=== PATIENT | male | born 1945 | race Caucasian/White ===

== ENCOUNTER 2016-09-29 21:18 | Observation (INO) | payer MEDICARE, OTHER ==
[2016-09-29] MEDS ORDERED: Sodium Chloride 0.9% 1000 ML 1,000 ML IV STA (21:54)
[2016-09-29] MEDS ORDERED: PROTONIX 40 MG IV IV ONE ×2 (21:54→22:15)
[2016-09-29 22:12] LABS: BASOPHIL % 0.4 % (0.0-0.4); Eosinophil % 0.9 % (0.00-5.0); Granulocytes % 76.6 % (36.0-66.0); INR 1.14 (0.8-3.0); Lymphocytes % 14.5 % (24.0-44.0); Mean Cell Volume 78.3 fl (78-100); Mean Platelet Volume 10.9 fl (6-9.5); Monocytes % 7.6 % (0.0-12.0); PROTIME 12.7 SECONDS (8.83-12.87); Platelet Count 320 K/mm3 (150-450); Red Cell Distribution Width 15.5 % (11.5-14.0)
[2016-09-29 22:13] LABS: Mean Corpuscular Hemoglobin 24.2 pg (26-32)
[2016-09-29] MEDS ORDERED: Sodium Chloride 0.9% 1000 ML 1,000 ML ONE (22:15)
[2016-09-29] MEDS ORDERED: Phenergan 25 MG INJ IV ONE (22:18)
[2016-09-29] MEDS ORDERED: Hydromorphone 1 mg/ml Ampule IV ONE (22:18)
--- NOTE | 2016-09-29 22:18 | ERPHSYRPT ---
- History of Present Illness Time Seen by Provider: 09/29/16 22:00 Historian: patient Exam Limitations: no limitations Physician History: FOR THE PAST MONTH PT HAS HAD 3-10 EPISODES OF DIARRHEA PER DAY WITH BRIGHT RED BLOOD IN THE STOOL FOR THE LAST 2 DAYS. PT ALSO C/O NAUSEA TODAY. PT DENIES VOMITING, CHEST PAIN AND SHORTNESS OF AIR. Allergies/Adverse Reactions: No Known Drug Allergies Allergy (Unverified 09/29/16 22:02) Home Medications: Aspirin 81 gm Chew [Baby Aspirin 81 mg Chew] 81 mg PO DAILY 06/10/16 [ History] Atenolol 50 mg [Tenormin 50 mg] 50 mg PO DAILY 06/10/16 [History] Fenofibrate,Micronized 145 mg* [Tricor 145 MG] 145 mg PO DAILY 06/10/16 [ History] Meloxicam 7.5 mg [Mobic 7.5 MG] 7.5 mg PO BID 06/10/16 [History] Omeprazole 40 mg PO DAILY 06/10/16 [History] Tamsulosin HCl 0.4 mg [Flomax 0.4 MG] 0.4 mg PO DAILY 06/10/16 [History] Tramadol HCl [Tramadol HCl ER] 100 mg PO DAILY 06/10/16 [History] - Review of Systems Constitutional: No Fever Respiratory: No Dyspnea Cardiac: No Chest Pain Abdominal/Gastrointestinal: Nausea, Diarrhea, Hematochezia All Other Systems: Reviewed and Negative - Nursing Vital Signs Nursing Vital Signs: Initial Vital Signs Temperature 98 F Temperature Source Oral Pulse Rate 68 Respiratory Rate 16 Blood Pressure [] 111/78 Pain Intensity 0 - Physical Exam General Appearance: alert Eye Exam: PERRL/EOMI Ears, Nose, Throat Exam: TMs normal, moist mucous membranes Neck Exam: normal inspection Respiratory Exam: lungs clear Cardiovascular Exam: normal heart sounds Gastrointestinal/Abdomen Exam: soft, tenderness (MILD DIFFUSE ABDOMINAL TENDERNESS), other (B.S. VERY HYPERACTIVE AND NORMOTONIC) Rectal Exam: normal rectal tone, hemorrhoids (EXTERNAL HEMORRHOID), blood Back Exam: normal range of motion Extremity Exam: normal inspection, No pedal edema Neurologic Exam: alert, cooperative Skin Exam: warm, dry - Course Nursing assessment & vital signs reviewed: Yes - CT Exams Abdomen/Pelvis CT Interpretation: Tele-radiologist Report (COLONIC DIVERTICULOSIS. THERE IS BOWEL WALL THICKENING INVOLVING THE SIGMOID COLON WHICH MAY BE DUE TO INCOMPLETE DISTENTION OR COLITIS/DIVERTICULITIS.) Ordered Tests: Active Orders 24 hr Category Date Time Status IV Insertion STAT Care 09/29/16 21:54 Active ABDOMEN AND PELVIS W/0 CONTRAS [CT] Stat Exams 09/29/16 21:55 Taken AMYLASE Stat Lab 09/29/16 21:41 Completed BLOOD CULTURE Stat Lab 09/29/16 21:55 Received CBC W DIFF Stat Lab 09/29/16 21:41 Completed CMP Stat Lab 09/29/16 21:41 Completed LIPASE Stat Lab 09/29/16 21:41 Completed Occult Blood,Stool Other Stat Lab 09/29/16 21:55 Uncollected PROTIME WITH INR Stat Lab 09/29/16 21:41 Completed PTT Stat Lab 09/29/16 21:41 Completed UA Stat Lab 09/29/16 21:55 Ordered Medication Summary Generic Name Dose Route Start Last Admin Trade Name Freq PRN Reason Stop Dose Admin Levofloxacin/Dextrose 100 mls @ 100 mls/hr 09/29/16 23:23 09/29/16 23:32 Levofloxacin 500mg/100ml D5w IV 09/30/16 00:22 100 mls/hr STAT ONE Administration Metronidazole 100 mls @ 100 mls/hr 09/29/16 23:23 09/29/16 23:32 Flagyl 500 Mg Ivpb IV 09/30/16 00:22 100 mls/hr STAT ONE Administration Discontinued Medications Generic Name Dose Route Start Last Admin Trade Name Freq PRN Reason Stop Dose Admin Hydromorphone HCl 1 mg 09/29/16 22:18 09/29/16 22:23 Hydromorphone 1 Mg/Ml Ampule IV 09/29/16 22:19 1 mg STAT ONE Administration Hydromorphone HCl Confirm 09/29/16 22:23 Hydromorphone 1 Mg/Ml Ampule Administered 09/29/16 22:24 Dose 1 mg .ROUTE .STK-MED ONE Sodium Chloride 1,000 mls @ 999 mls/hr 09/29/16 21:54 09/29/16 22:17 Sodium Chloride 0.9% 1000 Ml IV 09/29/16 22:54 999 mls/hr .Q1H1M STA Administration Sodium Chloride Confirm 09/29/16 22:15 Sodium Chloride 0.9% 1000 Ml Administered 09/29/16 22:16 Dose 1,000 mls @ ud .ROUTE .STK-MED ONE Metronidazole Confirm 09/29/16 23:31 Flagyl 500 Mg Ivpb Administered 09/29/16 23:32 Dose 100 mls @ ud IV .STK-MED ONE Levofloxacin/Dextrose Confirm 09/29/16 23:31 Levofloxacin 500mg/100ml D5w Administered 09/29/16 23:32 Dose 100 mls @ ud IV .STK-MED ONE Pantoprazole Sodium 40 mg 09/29/16 21:54 09/29/16 22:17 Protonix 40 Mg Iv IV 09/29/16 21:55 40 mg STAT ONE Administration Pantoprazole Sodium Confirm 09/29/16 22:15 Protonix 40 Mg Iv Administered 09/29/16 22:16 Dose 40 mg IV .STK-MED ONE Promethazine HCl 12.5 mg 09/29/16 22:18 09/29/16 22:24 Phenergan 25 Mg Inj IV 09/29/16 22:19 12.5 mg STAT ONE Administration Promethazine HCl Confirm 09/29/16 22:23 Phenergan 25 Mg Inj Administered 09/29/16 22:24 Dose 25 mg .ROUTE .STK-MED ONE Lab/Rad Data: Laboratory Result Diagrams 09/29/16 21:41 09/29/16 21:41 Laboratory Results 09/29/16 09/29/16 09/29/16 Range/Units 21:41 21:41 21:41 WBC (4.0-10.5) K/mm3 RBC (4.1-5.6) M/mm3 Hgb (12.5-18.0) gm/dl Hct (42-50) % MCV (78-100) fl MCH (26-32) pg MCHC (32-36) g/dl RDW (11.5-14.0) % Plt Count (150-450) K/mm3 MPV (6-9.5) fl Gran % (36.0-66.0) % Lymphocytes % (24.0-44.0) % Monocytes % (0.0-12.0) % Eosinophils % (0.00-5.0) % Basophils % (0.0-0.4) % Basophils # (0-0.4) INR 1.14 (0.8-3.0) PTT 31.0 (24.1-36.1) SECONDS Sodium 139 (136-145) mEq/L Potassium 4.4 (3.5-5.1) mEq/L Chloride 105 (98-107) mEq/L Carbon Dioxide 25.5 (21-32) mEq/L Anion Gap 12.8 (5-15) MEQ/L BUN 30 H (9-20) mg/dL Creatinine 1.34 H (0.55-1.30) mg/dl Estimated GFR 56 ML/MIN Glucose 119 H (70-110) MG/DL Calcium 8.6 (8.5-10.1) mg/dL Total Bilirubin 0.3 (0.2-1.0) mg/dL AST 23 (15-37) U/L ALT 16 (12-78) U/L Alkaline Phosphatase 75 (46-116) U/L Serum Total Protein 6.8 (6.4-8.2) gm/dL Albumin 3.5 (3.4-5.0) g/dL Amylase 50 (25-115) U/L Lipase 80 (73-393) U/L ABO Group O Rh Factor POSITIVE Antibody Screen NEGATIVE (NEGATIVE) 09/29/16 Range/Units 21:41 WBC 17.0 H (4.0-10.5) K/mm3 RBC 4.20 (4.1-5.6) M/mm3 Hgb 10.2 L (12.5-18.0) gm/dl Hct 32.9 L (42-50) % MCV 78.3 (78-100) fl MCH 24.2 L (26-32) pg MCHC 31.0 L (32-36) g/dl RDW 15.5 H (11.5-14.0) % Plt Count 320 (150-450) K/mm3 MPV 10.9 H (6-9.5) fl Gran % 76.6 H (36.0-66.0) % Lymphocytes % 14.5 L (24.0-44.0) % Monocytes % 7.6 (0.0-12.0) % Eosinophils % 0.9 (0.00-5.0) % Basophils % 0.4 (0.0-0.4) % Basophils # 0.06 (0-0.4) INR (0.8-3.0) PTT (24.1-36.1) SECONDS Sodium (136-145) mEq/L Potassium (3.5-5.1) mEq/L Chloride (98-107) mEq/L Carbon Dioxide (21-32) mEq/L Anion Gap (5-15) MEQ/L BUN (9-20) mg/dL Creatinine (0.55-1.30) mg/dl Estimated GFR ML/MIN Glucose (70-110) MG/DL Calcium (8.5-10.1) mg/dL Total Bilirubin (0.2-1.0) mg/dL AST (15-37) U/L ALT (12-78) U/L Alkaline Phosphatase (46-116) U/L Serum Total Protein (6.4-8.2) gm/dL Albumin (3.4-5.0) g/dL Amylase (25-115) U/L Lipase (73-393) U/L ABO Group Rh Factor Antibody Screen (NEGATIVE) - Progress Discussed with : Khushboo (ABD - [id number]) - Departure Time of Disposition: 23:49 Departure Disposition: Observation Clinical Impression: DIVERTICULITIS, HEMATOCHEZIA, ANEMIA, HTN Condition: Fair Critical Care Time: No Referrals: SULTANA TAN MD [Primary Care Provider] -
[2016-09-29 22:20] LABS: ALBUMIN 3.5 g/dL (3.4-5.0); ANION GAP 12.8 MEQ/L (5-15); BILIRUBIN,TOTAL 0.3 mg/dL (0.2-1.0); Carbon Dioxide 25.5 mEq/L (21-32); Potassium 4.4 mEq/L (3.5-5.1); Total Protein 6.8 gm/dL (6.4-8.2)
[2016-09-29] MEDS ORDERED: Phenergan 25 MG INJ ONE (22:23)
[2016-09-29] MEDS ORDERED: Hydromorphone 1 mg/ml Ampule ONE (22:23)
[2016-09-29] MEDS ORDERED: FLAGYL 500 MG IVPB 100 ML IV ONE ×2 (23:23→23:31)
[2016-09-29] MEDS ORDERED: Levofloxacin 500MG/100ML D5W 100 ML IV ONE ×2 (23:23→23:31)
[2016-09-30] MEDS ORDERED: TYLENOL 325 MG PO PRN (00:23)
[2016-09-30] MEDS: Phenergan 25 MG INJ IV PRN (00:56)
[2016-09-30] MEDS: DILAUDID 2 MG INJECTION IV PRN (00:56)
[2016-09-30] MEDS: Sodium Chloride 0.9% 1000 ML 1,000 ML IV SCH ×3 (00:57→17:34)
[2016-09-30 04:04] LABS: COMPLETE URINE MICROSCOPIC? YES; Collection Type CLEAN CATCH; Ph 5.5 (5-6); WBC 0-2 /HPF (0-5)
[2016-09-30 04:05] LABS: Epithelial Cells RARE /HPF (FEW)
[2016-09-30] MEDS: FLAGYL 500 MG IVPB 100 ML IV SCH ×3 (05:28→21:24)
[2016-09-30 05:52] LABS: BASOPHIL % 0.2 % (0.0-0.4); Eosinophil % 2.1 % (0.00-5.0); Granulocytes % 72.5 % (36.0-66.0); Mean Cell Volume 79.5 fl (78-100); Mean Platelet Volume 10.9 fl (6-9.5); Monocytes % 8.2 % (0.0-12.0); Platelet Count 231 K/mm3 (150-450); Red Blood Count 3.37 M/mm3 (4.1-5.6); Red Cell Distribution Width 15.6 % (11.5-14.0); White Blood Count 9.6 K/mm3 (4.0-10.5)
[2016-09-30 06:18] LABS: ALBUMIN 2.7 g/dL (3.4-5.0); ALKALINE PHOSPHATASE 56 U/L (46-116); ANION GAP 11.8 MEQ/L (5-15); BILIRUBIN,TOTAL 0.3 mg/dL (0.2-1.0); BLOOD UREA NITROGEN 30 mg/dL (9-20); CHLORIDE 109 mEq/L (98-107); Carbon Dioxide 24.3 mEq/L (21-32); Glucose 92 MG/DL (70-110); Potassium 4.5 mEq/L (3.5-5.1); SGOT/AST 17 U/L (15-37); SGPT/ALT 11 U/L (12-78); SODIUM 141 mEq/L (136-145); Total Protein 5.4 gm/dL (6.4-8.2)
--- NOTE | 2016-09-30 08:54 | PCM.HP ---
History of Present Illness - Chief Complaint Chief Complaint: c/o bleeding per rectum for 3 days History of Present Illness: is a 70 year old male.came to ER with c/o of bloody stools for 3 days. denies any fever - Review of Systems Constitutional: No Fever, No Chills Eyes: No Symptoms Ears, Nose, & Throat: No Symptoms Respiratory: No Cough, No Short Of Breath Cardiac: No Chest Pain, No Edema, No Syncope Abdominal/Gastrointestinal: No Abdominal Pain, No Nausea, No Vomiting, No Diarrhea Genitourinary Symptoms: No Dysuria Musculoskeletal: No Back Pain, No Neck Pain Skin: No Rash Neurological: No Dizziness, No Focal Weakness, No Sensory Changes Psychological: No Symptoms Endocrine: No Symptoms Hematologic/Lymphatic: No Symptoms Immunological/Allergic: No Symptoms Medications & Allergies Home Medications: Home Medication List Aspirin 81 gm Chew [Baby Aspirin 81 mg Chew] 81 mg PO DAILY 06/10/16 [ History Confirmed 09/30/16] Atenolol 50 mg [Tenormin 50 mg] 50 mg PO DAILY 06/10/16 [History Confirmed 09/30/16] Fenofibrate,Micronized 145 mg* [Tricor 145 MG] 145 mg PO DAILY 06/10/16 [ History Confirmed 09/30/16] Meloxicam 7.5 mg [Mobic 7.5 MG] 7.5 mg PO BID 06/10/16 [History Confirmed 09/30/16] Omeprazole 40 mg PO DAILY 06/10/16 [History Confirmed 09/30/16] Tamsulosin HCl 0.4 mg [Flomax 0.4 MG] 0.4 mg PO DAILY 06/10/16 [History Confirmed 09/30/16] Tramadol HCl [Tramadol HCl ER] 100 mg PO DAILY 06/10/16 [History Confirmed 09/30] Allergies/Adverse Reactions: Allergies Allergy/AdvReac Type Severity Reaction Status Date / Time No Known Drug Allergies Allergy Unverified 09/29/16 22:02 - Past Medical History Cardiac History: Hypertension Male Reproductive Disorders: Other Comment: elevated psa with biopsy 4 months ago. hx of kidney stones and cyst on right kidney - Past Surgical History Past Surgical History: Yes Musculskeletal Surgical Hx: Joint Replacement, Other Other Surgical History: right hip replacement bilat carpal tunnel - Social History Smoking Status: Former smoker Exposure to second hand smoke: No Alcohol: None Drug Use: none - Physical Exam Vital Signs: Vital Signs - 24 hr Temp Pulse Resp BP BP Pulse Ox 09/30/16 07:55 122/56 09/30/16 07:54 97.6 F 54 L 17 93/51 98 09/30/16 04:00 97.9 F 52 L 14 112/51 97 09/30/16 01:06 98.3 F 55 L 18 160/65 100 General Appearance: no apparent distress, alert Neurologic Exam: alert, oriented x 3, cooperative, normal mood/affect, nml cerebellar function, nml station & gait, sensation nml, No motor deficits Eye Exam: PERRL/EOMI, eyes nml inspection Ears, Nose, Throat Exam: normal ENT inspection, TMs normal, pharynx normal, moist mucous membranes Neck Exam: normal inspection, non-tender, supple, full range of motion Respiratory Exam: normal breath sounds, lungs clear, No respiratory distress Cardiovascular Exam: regular rate/rhythm, normal heart sounds, normal peripheral pulses Gastrointestinal/Abdomen Exam: soft, normal bowel sounds, No tenderness, No mass Back Exam: normal inspection, normal range of motion, No CVA tenderness, No vertebral tenderness Extremity Exam: normal inspection, normal range of motion, pelvis stable Skin Exam: normal color, warm, dry, No rash Lymphatic Exam: No adenopathy Results - Labs Lab/Micro Results: Lab Results-Last 24 Hours 09/30/16 09/30/16 09/30/16 Range/Units 03:45 05:28 05:28 WBC 9.6 (4.0-10.5) K/mm3 RBC 3.37 L (4.1-5.6) M/mm3 Hgb 8.1 L (12.5-18.0) gm/dl Hct 26.8 L (42-50) % MCV 79.5 (78-100) fl MCH 24.0 L (26-32) pg MCHC 30.2 L (32-36) g/dl RDW 15.6 H (11.5-14.0) % Plt Count 231 (150-450) K/mm3 MPV 10.9 H (6-9.5) fl Gran % 72.5 H (36.0-66.0) % Lymphocytes % 17.0 L (24.0-44.0) % Monocytes % 8.2 (0.0-12.0) % Eosinophils % 2.1 (0.00-5.0) % Basophils % 0.2 (0.0-0.4) % Basophils # 0.02 (0-0.4) Sodium 141 (136-145) mEq/L Potassium 4.5 (3.5-5.1) mEq/L Chloride 109 H (98-107) mEq/L Carbon Dioxide 24.3 (21-32) mEq/L Anion Gap 11.8 (5-15) MEQ/L BUN 30 H (9-20) mg/dL Creatinine 1.09 (0.55-1.30) mg/dl Estimated GFR > 60 ML/MIN Glucose 92 (70-110) MG/DL Calcium 8.1 L (8.5-10.1) mg/dL Total Bilirubin 0.3 (0.2-1.0) mg/dL AST 17 (15-37) U/L ALT 11 L (12-78) U/L Alkaline Phosphatase 56 (46-116) U/L Serum Total Protein 5.4 L (6.4-8.2) gm/dL Albumin 2.7 L (3.4-5.0) g/dL Ur Collection Type CLEAN CATCH Urine Color YELLOW (YELLOW) Urine Appearance CLEAR (CLEAR) Urine pH 5.5 (5-6) Ur Specific Hobbs 1.020 (1.005-1.025) Urine Protein NEGATIVE (Negative) Urine Glucose (UA) NEGATIVE (NEGATIVE) mg/dL Urine Ketones NEGATIVE (NEGATIVE) Urine Nitrite NEGATIVE (NEGATIVE) Urine Bilirubin NEGATIVE (NEGATIVE) Urine Urobilinogen 0.2 (0-1) mg/dL Urine WBC (Auto) TRACE (NEGATIVE) Urine RBC (Auto) NEGATIVE (0-5) Manny/ul Urine Microscopic WBC 0-2 (0-5) /HPF Ur Epithelial Cells RARE (FEW) /HPF Specimen Received 09/30/16:0345 Crossmatch (COMPATIBLE) 09/30/16 09/30/16 Range/Units 05:30 05:30 WBC (4.0-10.5) K/mm3 RBC (4.1-5.6) M/mm3 Hgb (12.5-18.0) gm/dl Hct (42-50) % MCV (78-100) fl MCH (26-32) pg MCHC (32-36) g/dl RDW (11.5-14.0) % Plt Count (150-450) K/mm3 MPV (6-9.5) fl Gran % (36.0-66.0) % Lymphocytes % (24.0-44.0) % Monocytes % (0.0-12.0) % Eosinophils % (0.00-5.0) % Basophils % (0.0-0.4) % Basophils # (0-0.4) Sodium (136-145) mEq/L Potassium (3.5-5.1) mEq/L Chloride (98-107) mEq/L Carbon Dioxide (21-32) mEq/L Anion Gap (5-15) MEQ/L BUN (9-20) mg/dL Creatinine (0.55-1.30) mg/dl Estimated GFR ML/MIN Glucose (70-110) MG/DL Calcium (8.5-10.1) mg/dL Total Bilirubin (0.2-1.0) mg/dL AST (15-37) U/L ALT (12-78) U/L Alkaline Phosphatase (46-116) U/L Serum Total Protein (6.4-8.2) gm/dL Albumin (3.4-5.0) g/dL Ur Collection Type Urine Color (YELLOW) Urine Appearance (CLEAR) Urine pH (5-6) Ur Specific Hobbs (1.005-1.025) Urine Protein (Negative) Urine Glucose (UA) (NEGATIVE) mg/dL Urine Ketones (NEGATIVE) Urine Nitrite (NEGATIVE) Urine Bilirubin (NEGATIVE) Urine Urobilinogen (0-1) mg/dL Urine WBC (Auto) (NEGATIVE) Urine RBC (Auto) (0-5) Manny/ul Urine Microscopic WBC (0-5) /HPF Ur Epithelial Cells (FEW) /HPF Specimen Received Crossmatch COMPATIBLE COMPATIBLE (COMPATIBLE) Assessment/Plan (1) Diverticulitis large intestine w/o perforation or abscess w/bleeding Current Visit: Yes Status: Acute Assessment & Plan: NPO, IV fluids, antibiotics, surgical consults Code(s): K57.33 - DVTRCLI OF LG INT W/O PERFORATION OR ABSCESS W BLEEDING
[2016-09-30 08:57] LABS: Mean Cell Volume 79.6 fl (78-100); Mean Platelet Volume 9.7 fl (6-9.5); Platelet Count 244 K/mm3 (150-450); Red Blood Count 3.43 M/mm3 (4.1-5.6); Red Cell Distribution Width 15.6 % (11.5-14.0)
[2016-09-30 08:59] LABS: Mean Corpuscular Hemoglobin 24.4 pg (26-32)
--- NOTE | 2016-09-30 09:08 | XRAY ---
Indication: Diarrhea. Rectal bleeding. Lower pelvic pain. Multiple contiguous axial images obtained through the abdomen and pelvis without contrast as ordered. Comparison: CT renal stone study March 25, 2013. Lung bases demonstrates minimal lingular fibrosis/scarring. No infiltrate, consolidation, or effusion. Heart is not enlarged. Stomach is significantly distended with food/fluid. Noncontrasted bowel loops appear nonobstructed. Mild colonic fluid leveling consistent with known diarrhea. Minimal sigmoid diverticulosis. Appendix not seen. No free fluid/air. Again nonobstructing bilateral renal micro-calculi. Stable bilateral renal cysts including large 10 cm right renal cyst. Remaining liver, gallbladder, pancreas, spleen, adrenal glands, ureters, and bladder appear unremarkable for noncontrast exam. There remains mild aortoiliac calcifications without AAA. Osseous structures intact again with mild degenerative changes throughout the spine. Interval right total hip arthroplasty. Stable small fatty left inguinal hernia. Impression: 1. Mild colonic fluid leveling consistent with known diarrhea. Sigmoid diverticulosis. 2. Again nonobstructing bilateral renal micro-calculi and bilateral renal cysts. 3. Stable fatty left inguinal hernia. Comment: Preliminary interpretation was made by C. No critical discrepancy. CTDI 18.64
[2016-09-30] MEDS: PROTONIX 40 MG IV IV SCH (09:28)
[2016-09-30] MEDS ORDERED: DULCOLAX 5 MG PO SCH ×2 (15:00→19:00)
[2016-09-30] MEDS ORDERED: GAVILAX PO SCH (17:15)
[2016-09-30] MEDS ORDERED: Flonase NASAL NS ONE (18:28)
[2016-09-30] MEDS: Flonase NASAL NS PRN (18:29)
[2016-09-30] MEDS ORDERED: Levofloxacin 500MG/100ML D5W 100 ML IV SCH (22:00)
[2016-10-01] MEDS: Sodium Chloride 0.9% 1000 ML 1,000 ML IV SCH (01:44)
[2016-10-01] MEDS: Phenergan 25 MG INJ IV PRN ×2 (05:36→09:05)
[2016-10-01] MEDS: FLAGYL 500 MG IVPB 100 ML IV SCH (05:37)
[2016-10-01] MEDS: Flonase NASAL NS PRN (05:42)
[2016-10-01 06:21] LABS: Mean Cell Volume 78.3 fl (78-100); Mean Corpuscular Hemoglobin 24.3 pg (26-32); Mean Platelet Volume 10.6 fl (6-9.5); Platelet Count 214 K/mm3 (150-450); Red Blood Count 3.41 M/mm3 (4.1-5.6); Red Cell Distribution Width 15.8 % (11.5-14.0); White Blood Count 5.2 K/mm3 (4.0-10.5)
[2016-10-01] MEDS ORDERED: Lactated Ringers 1,000 ML IV ONE (06:58)
[2016-10-01] MEDS ORDERED: ANUSOL-HC 2.5% CREAM 30 GM ONE (06:59)
[2016-10-01] MEDS ORDERED: KEFZOL 1 GM ONE (07:31)
[2016-10-01] MEDS ORDERED: DIPRIVAN 200 MG/20 ML IV ONE (08:00)
[2016-10-01] MEDS: DILAUDID 2 MG INJECTION IV PRN (09:03)
[2016-10-01] MEDS: PROTONIX 40 MG IV IV SCH (09:14)
[2016-10-01] MEDS ORDERED: Flomax 0.4 MG PO SCH (10:00)
[2016-10-01] MEDS ORDERED: TENORMIN 50 MG PO SCH (10:00)
[2016-10-01] MEDS ORDERED: ULTRAM 50 MG PO SCH (10:00)
[2016-10-01] MEDS ORDERED: Tricor 145 MG PO SCH (10:00)
--- NOTE | 2016-10-01 10:53 | PCM.DS ---
Discharge Summary Date of Admission: 09/29/16 23:32 Admitting Physician: SULTANA TAN Consults: Consults on Case 09/30/16 09:05 Consult Surgery ROUTINE Primary Care Provider: SULTANA TAN Allergies Allergies No Known Drug Allergies Allergy (Unverified 09/29/16 22:02) Hospital Summary - Hospital Course Hospital Course: Chief Complaint Diagnosis c/o bleeding per rectum for 3 days Allergies Allergy/AdvReac Type Severity Reaction Status Date / Time No Known Drug Allergies Allergy Unverified 09/29/16 22:02 Vital Signs (Last 24 hours) Temp Pulse Resp BP BP Pulse Ox 10/01/16 09:14 60 128/60 10/01/16 07:37 98.0 F 64 17 157/70 96 10/01/16 07:16 16 10/01/16 06:00 16 10/01/16 04:00 98.9 F 59 L 14 143/67 97 10/01/16 00:00 14 09/30/16 23:44 97.9 F 61 14 139/62 97 09/30/16 19:54 97.3 F 60 15 151/70 99 09/30/16 18:00 19 09/30/16 16:00 98.6 F 61 19 122/60 98 09/30/16 12:00 18 09/30/16 11:54 98.4 F 60 18 127/62 98 09/30/16 11:00 128/60 Current Medications Generic Name Dose Route Start Last Admin Trade Name Freq PRN Reason Stop Dose Admin Acetaminophen 650 mg 09/30/16 00:23 10/01/16 05:37 Tylenol 325 Mg PO 10/30/16 00:22 650 mg Q4H PRN PRN Administration PAIN AND/OR FEVER Atenolol 50 mg 10/01/16 10:00 10/01/16 09:14 Tenormin 50 Mg PO 10/31/16 09:59 Not Given DAILY VIKTOR Fenofibrate 145 mg 10/01/16 10:00 10/01/16 09:18 Tricor 145 Mg PO 10/31/16 09:59 145 mg DAILY VIKTOR Administration Fluticasone Propionate 1 gm 09/30/16 17:00 10/01/16 05:42 Flonase Nasal NS 10/30/16 16:59 1 gm BID PRN PRN Administration Hydromorphone HCl 1 mg 09/30/16 00:23 10/01/16 09:03 Dilaudid 2 Mg Injection IV 10/06/16 12:00 1 mg Q4H PRN PRN Administration PAIN Levofloxacin/Dextrose 100 mls @ 100 mls/hr 09/30/16 22:00 09/30/16 22:11 Levofloxacin 500mg/100ml D5w IV 10/30/16 21:59 100 mls/hr Q24H22 VIKTOR Administration Metronidazole 100 mls @ 100 mls/hr 09/30/16 06:00 10/01/16 05:37 Flagyl 500 Mg Ivpb IV 10/30/16 05:59 100 mls/hr Q8HT VIKTOR Administration Sodium Chloride 1,000 mls @ 150 mls/hr 09/30/16 00:23 10/01/16 01:44 Sodium Chloride 0.9% 1000 Ml IV 10/30/16 00:22 150 mls/hr .Q6H40M VIKTOR Administration Pantoprazole Sodium 40 mg 09/30/16 10:00 10/01/16 09:14 Protonix 40 Mg Iv IV 10/02/16 08:00 40 mg Q24H10 VIKTOR Administration Pantoprazole Sodium 40 mg 10/02/16 10:00 Protonix 40mg Tablet PO 11/01/16 09:59 DAILY VIKTOR Promethazine HCl 12.5 mg 09/30/16 00:23 10/01/16 09:05 Phenergan 25 Mg Inj IV 10/30/16 00:22 12.5 mg Q2H PRN PRN Administration NAUSEA/VOMITING Tamsulosin HCl 0.4 mg 10/01/16 10:00 10/01/16 09:18 Flomax 0.4 Mg PO 10/31/16 09:59 0.4 mg DAILY VIKTOR Administration Tramadol HCl 100 mg 10/01/16 10:00 10/01/16 09:19 Ultram 50 Mg PO 10/31/16 09:59 100 mg DAILY VIKTOR Administration Discontinued Medications Generic Name Dose Route Start Last Admin Trade Name Freq PRN Reason Stop Dose Admin Bisacodyl 10 mg 09/30/16 15:00 09/30/16 17:34 Dulcolax 5 Mg PO 10/30/16 23:00 10 mg 1500 VIKTOR Administration Bisacodyl 10 mg 09/30/16 19:00 09/30/16 18:54 Dulcolax 5 Mg PO 09/30/16 23:00 10 mg 1900 VIKTOR Administration Cefazolin Sodium Confirm 10/01/16 07:31 Kefzol 1 Gm Administered 10/01/16 07:32 Dose 2 g .ROUTE .STK-MED ONE Fluticasone Propionate Confirm 09/30/16 18:28 Flonase Nasal Administered 09/30/16 18:29 Dose 16 gm NS .STK-MED ONE Hydrocortisone Confirm 10/01/16 06:59 Anusol-Hc 2.5% Cream 30 Gm Administered 10/01/16 07:00 Dose 30 gm .ROUTE .STK-MED ONE Hydromorphone HCl 1 mg 09/29/16 22:18 09/29/16 22:23 Hydromorphone 1 Mg/Ml Ampule IV 09/29/16 22:19 1 mg STAT ONE Administration Hydromorphone HCl Confirm 09/29/16 22:23 Hydromorphone 1 Mg/Ml Ampule Administered 09/29/16 22:24 Dose 1 mg .ROUTE .STK-MED ONE Sodium Chloride 1,000 mls @ 999 mls/hr 09/29/16 21:54 09/29/16 22:17 Sodium Chloride 0.9% 1000 Ml IV 09/29/16 22:54 999 mls/hr .Q1H1M STA Administration Sodium Chloride Confirm 09/29/16 22:15 Sodium Chloride 0.9% 1000 Ml Administered 09/29/16 22:16 Dose 1,000 mls @ ud .ROUTE .STK-MED ONE Levofloxacin/Dextrose 100 mls @ 100 mls/hr 09/29/16 23:23 09/29/16 23:32 Levofloxacin 500mg/100ml D5w IV 09/30/16 00:22 100 mls/hr STAT ONE Administration Metronidazole 100 mls @ 100 mls/hr 09/29/16 23:23 09/29/16 23:32 Flagyl 500 Mg Ivpb IV 09/30/16 00:22 100 mls/hr STAT ONE Administration Metronidazole Confirm 09/29/16 23:31 Flagyl 500 Mg Ivpb Administered 09/29/16 23:32 Dose 100 mls @ ud IV .STK-MED ONE Levofloxacin/Dextrose Confirm 09/29/16 23:31 Levofloxacin 500mg/100ml D5w Administered 09/29/16 23:32 Dose 100 mls @ ud IV .STK-MED ONE Lactated Ringer's Confirm 10/01/16 06:58 Lactated Ringers Administered 10/01/16 06:59 Dose 1,000 mls @ ud IV .STK-MED ONE Pantoprazole Sodium 40 mg 09/29/16 21:54 09/29/16 22:17 Protonix 40 Mg Iv IV 09/29/16 21:55 40 mg STAT ONE Administration Pantoprazole Sodium Confirm 09/29/16 22:15 Protonix 40 Mg Iv Administered 09/29/16 22:16 Dose 40 mg IV .STK-MED ONE Polyethylene Glycol 238 gm 09/30/16 17:15 09/30/16 17:46 Gavilax PO 09/30/16 23:00 238 gm 1XONLY VIKTOR Administration Promethazine HCl 12.5 mg 09/29/16 22:18 09/29/16 22:24 Phenergan 25 Mg Inj IV 09/29/16 22:19 12.5 mg STAT ONE Administration Promethazine HCl Confirm 09/29/16 22:23 Phenergan 25 Mg Inj Administered 09/29/16 22:24 Dose 25 mg .ROUTE .STK-MED ONE Intake & Output (Last 24 hours) 09/28/16 09/29/16 09/30/16 10/01/16 11:59 11:59 11:59 11:59 Intake Total 1386 2492 Output Total 500 Balance 886 2492 Weight 75.705 kg 75.387 kg Microbiology Results (Last 24 hours) 09/29/16 21:55 Blood - Pending 09/29/16 21:55 Blood Blood Culture - Preliminary NO GROWTH TO DATE 09/29/16 21:41 Blood - Pending 09/29/16 21:41 Blood Blood Culture - Preliminary NO GROWTH TO DATE Laboratory Results (Last 24 hours) 10/01/16 06:00 WBC 5.2 RBC 3.41 L Hgb 8.3 L Hct 26.7 L MCV 78.3 MCH 24.3 L MCHC 31.1 L RDW 15.8 H Plt Count 214 MPV 10.6 H Orders (Last 24 hours) Category Date Time Status Consent,Obtain ONCE Care 09/30/16 16:49 Completed Miscellaneous Nursing Order ONCE Care 09/30/16 16:49 Active Miscellaneous Nursing Order ROUTINE Care 09/30/16 16:54 Active Clear Liquid Diet 09/30/16 Dinner Completed High Fiber Diet 10/01/16 Breakfast Active NPO Diet 10/01/16 00:01 Completed CBC Routine Lab 10/01/16 06:00 Completed Surgical Pathology Routine Lab 10/01/16 08:00 Received Atenolol 50 mg [Tenormin 50 mg] Med 10/01/16 10:00 Active 50 mg PO DAILY Bisacodyl 5 mg [Dulcolax 5 mg] Med 09/30/16 15:00 Discontinued 10 mg PO 1500 Bisacodyl 5 mg [Dulcolax 5 mg] Med 09/30/16 19:00 Discontinued 10 mg PO 1900 Cefazolin Sodium 1 gm [Kefzol 1 gm] Med 10/01/16 07:31 Discontinued 2 g .ROUTE .STK-MED ONE Fenofibrate,Micronized 145 mg* [Tricor 145 MG] Med 10/01/16 10:00 Active 145 mg PO DAILY Fluticasone Propionate [Flonase NASAL] Med 09/30/16 17:00 Active 1 gm NS BID PRN PRN Fluticasone Propionate [Flonase NASAL] Med 09/30/16 18:28 Discontinued 16 gm NS .STK-MED ONE Hydrocortisone 2.5% 30 gm [Anusol-Hc 2.5% Cream 30 Med 10/01/16 06:59 Discontinued gm] 30 gm .ROUTE .STK-MED ONE Levofloxacin [Levofloxacin 500MG/100ML D5W] 100 ml Med 09/30/16 22:00 Active IV Q24H22 PANTOPRAZOLE 40 mg Tablet [Protonix 40MG Tablet] Med 10/02/16 10:00 Active 40 mg PO DAILY Pantoprazole 40 mg [Protonix 40 mg IV] Med 09/30/16 10:00 Active 40 mg IV Q24H10 Polyethylene Glycol 3350 [Gavilax] Med 09/30/16 17:15 Discontinued 238 gm PO 1XONLY Ringers Solution,Lactated [Lactated Ringers] 1,000 ml Med 10/01/16 06:58 Discontinued IV UD Tamsulosin HCl 0.4 mg [Flomax 0.4 MG] Med 10/01/16 10:00 Active 0.4 mg PO DAILY Tramadol HCl 50 mg [Ultram 50 mg] Med 10/01/16 10:00 Active 100 mg PO DAILY Patient Care Notes (Last 24 hours) 10/01/16 08:35 (created 10/01/16 09:45) Nursing Note by Ceci Yepez Pt back to room from endoscopy. B/P 149/58, HR 60, R 16, O2 sat 100% on RA. Pt is having leg pain. Daughter states he has restless leg. Will let medication nurse know that pt needs pain medication. Shift assessment performed at this time. Initialized on 10/01/16 09:45 - END OF NOTE 09/30/16 15:41 Nursing Note by JONI GRIMES Called Dr. Tan's office at approximately 1400 this afternoon per request of patient. Notified nurse that patient has sinus and nasal congestion and is requesting medication for this, also asked if Dr. Tan would like to have CBC ordered for the morning. Initialized on 09/30/16 15:41 - END OF NOTE 09/30/16 11:27 Nursing Note by JONI GRIMES Patient has had one medium loose stool with bright red blood this morning. Dr. Tan aware and ordered CBC stat this morning. Result of that was called to Dr. Tan's nurse at [facility]. Hgb went from 8.1 to 8.4. Have received no new orders as of yet. Two units PRBCs on hold for now. Initialized on 09/30/16 11:27 - END OF NOTE doing better, s/p colonoscopy, results reviwed. will follow. Hgb stable, no more active bleeding - Vitals & Intake/Output Vital Signs: Vital Signs Temperature 98.0 F 10/01/16 07:37 Pulse Rate 60 10/01/16 09:14 Respiratory Rate 17 10/01/16 07:37 Blood Pressure 128/60 10/01/16 09:14 O2 Sat by Pulse Oximetry 96 10/01/16 07:37 Intake & Output: Intake & Output 09/28/16 09/29/16 09/30/16 10/01/16 11:59 11:59 11:59 11:59 Intake Total 1386 2492 Output Total 500 Balance 886 2492 Weight 75.705 kg 75.387 kg - Lab Result Diagrams: 10/01/16 06:00 09/30/16 05:28 Lab Results-Last 24 Hrs: Lab Results-Last 24 Hours 10/01/16 Range/Units 06:00 WBC 5.2 (4.0-10.5) K/mm3 RBC 3.41 L (4.1-5.6) M/mm3 Hgb 8.3 L (12.5-18.0) gm/dl Hct 26.7 L (42-50) % MCV 78.3 (78-100) fl MCH 24.3 L (26-32) pg MCHC 31.1 L (32-36) g/dl RDW 15.8 H (11.5-14.0) % Plt Count 214 (150-450) K/mm3 MPV 10.6 H (6-9.5) fl Discharge Exam General Appearance: no apparent distress, alert Neurologic Exam: alert, oriented x 3, cooperative, normal mood/affect, nml cerebellar function, sensation nml, No motor deficits Skin Exam: normal color, warm, dry Eye Exam: PERRL, EOMI, eyes nml inspection Ears, Nose, Throat Exam: normal ENT inspection, pharynx normal, moist mucous membranes Neck Exam: normal inspection, non-tender, supple, full range of motion Respiratory Exam: normal breath sounds, lungs clear, No respiratory distress Cardiovascular Exam: regular rate/rhythm, normal heart sounds Gastrointestinal/Abdomen Exam: soft, No tenderness, No mass Extremity Exam: normal inspection, normal range of motion Back Exam: normal inspection, normal range of motion, No CVA tenderness, No vertebral tenderness Male Genitalia Exam: deferred Rectal Exam: deferred Final Diagnosis/Problem List - Final Discharge Diagnosis/Problem (1) Diverticulitis large intestine w/o perforation or abscess w/bleeding Current Visit: Yes Status: Resolved (2) Hemorrhoid Current Visit: Yes Status: Resolved (3) Hematochezia Current Visit: Yes Status: Resolved - Discharge Discharge Date: 10/01/16 Disposition: Home, Self-Care Condition: Stable Prescriptions: No Action Atenolol 50 mg [Tenormin 50 mg] 50 mg PO DAILY Meloxicam 7.5 mg [Mobic 7.5 MG] 7.5 mg PO BID Omeprazole 40 mg PO DAILY Fenofibrate,Micronized 145 mg* [Tricor 145 MG] 145 mg PO DAILY Tamsulosin HCl 0.4 mg [Flomax 0.4 MG] 0.4 mg PO DAILY Aspirin 81 gm Chew [Baby Aspirin 81 mg Chew] 81 mg PO DAILY Tramadol HCl [Tramadol HCl ER] 100 mg PO DAILY Follow up with: SULTANA TAN MD [Primary Care Provider] - Call for Appointment
[2016-10-01 11:39] VITALS: BP 128/59; PULSE 77; O2SAT 100
--- NOTE | 2016-10-01 16:25 | CONS ---
CONSULT DATE: 09/30/16 This patient was seen as Dr. Melo is on-call for our group today. He asked that I swing by on my way from [place] to check on the patient. HISTORY OF PRESENT ILLNESS: 70 y/o gentleman with history of diarrhea, loose stools, 2-3 to up to 6-7 loose bowel movements per day for 2 or 3 months. He said he is riding the mower a lot. A day or a day and a half or so ago and developed rectal bleeding. Had a prior Hgb in the past of 12. Has been in the 8 range here which sounds, according to the nursing staff, has stabilized. He did have 1 with small amount of blood in the stool and he did have a few clots in a recent bowel movement. He denies any abdominal pain. Had a CT scan in the Emergency Room that showed diverticulosis, but no evidence of diverticulitis. Had fluid in the colon consistent with the known diarrhea. No free air or fluid. Had nonobstructing renal calculi. Had some fat in the inguinal area. PAST MEDICAL HISTORY: He has had some hypertension. HOME MEDICATIONS: Has been on aspirin, Tamsulosin, Fenofibrate, omeprazole, tramadol, meloxicam, and atenolol. ALLERGIES: NKDA. FAMILY HISTORY: Negative for colon cancer according to the patient. SOCIAL HISTORY: No smoking. Occasional alcohol use, no abuse. PAST SURGICAL HISTORY: He had a colonoscopy, last was maybe 3 years or so ago. He has had 3 colonoscopies in the past. He only had 1 polyp between the 3. He did have a pill camera work-up per Dr. Judge and he had had some upper scopes in [place] in the past apparently according to the patient. Had some hip surgery in the past. His Hgb was 84, WBC 10.4. His Hgb had been 8.1 earlier today, so it appeared to be stable up to 8.4 at this time. Liver function unremarkable. REVIEW OF SYSTEMS: 12 systems reviewed per admission assessment. No chest pain or palpitations currently. PHYSICAL EXAMINATION: Temperature is 90 degrees, he had BP 111/78, pulse 68, respirations 16. GENERAL: No acute distress. HEENT: Sclerae nonicteric. CHEST: Equal excursion. Nonlabored breathing. CVS: Regular rhythm pulse. ABDOMEN: Soft, nontender. No peritoneal signs currently. EXTREMITIES: No significant edema. NEURO: Alert, moving extremities symmetrically. No gross motor deficits noted. IMPRESSION: 1. RECTAL BLEEDING, UNCLEAR ETIOLOGY. Could be diverticulosis. The CT scan reading by the radiologist here does not show any signs of diverticulitis, no free air, no collections. Whether other etiology such as colitis or whether could have a hemorrhoid component as he has had some hemorrhoids in the past. Does occasionally prolapse out. Either way, no emergent open surgical intervention necessary, but do feel he would benefit from colonoscopy and as he has had a history of hemorrhoids in the past, possible internal hemorrhoid banding depending on operative findings and if no other obvious etiology is noted. Otherwise, risks and benefits explained in detail of the procedure including, but not limited to, bleeding; infection; risk of bowel injury or perforation possibly requiring open procedure; small risk of missed or nondiagnosis or incomplete exam possibly requiring barium enema or other studies or procedures; general risk of anesthesia or sedation; risk of bowel prep; postoperative risk of nausea, vomiting, or cramping, but not limited to as well as the possibility of inability to diagnose etiology of his source possibly requiring another procedure even referral to other specialist, but not limited to. He understands and agrees to the planned procedure as well as possibility if no other obvious etiology in the remainder of the colon is noted, if his hemorrhoids are quite prominent, could consider internal hemorrhoid banding if indicated at the time with risk of bleeding; infection; remote risk of deeper infection possibly requiring other procedures as well as the risk of failure to improve or progression of hemorrhoid disease possibly requiring other therapy or excisional therapy even at a later date. He understands and agrees to the planned procedure. Will proceed with colonoscopy, possible internal hemorrhoid banding when OR time available tomorrow if we can arrange for trauma call coverage for myself in [place] tomorrow. Thank you for the consult.
[2016-10-02] MEDS ORDERED: Protonix 40MG Tablet PO SCH (10:00)
--- NOTE | 2016-10-03 08:32 | OP ---
SURGERY DATE: 10/01/16 SURGERY TIME: 726 PREOPERATIVE DIAGNOSIS: 1. HISTORY OF RECTAL BLEEDING. POSTOPERATIVE DIAGNOSIS: 1. SOMEWHAT POOR BOWEL PREP LIMITING THE EXAM. 2. DIVERTICULOSIS. 3. INTERNAL/EXTERNAL HEMORRHOIDS. 4. POLYP ASCENDING COLON. 5. SMALL ADJACENT RAISED AREA VS EARLY POLYP ASCENDING COLON. 6. NO SIGNS OF ACTIVE BLEEDING. PROCEDURE: 1. Colonoscopy to terminal ileum. 2. Retrograde ileoscopy. 3. Hot snare polypectomy small ascending colon polyp. 4. Hot biopsy removal small raised lesion vs early polyp adjacent to ascending colon polyp. 5. Internal hemorrhoid banding X 3 columns. SURGEON: Dr. Luigi Hurtado. ANESTHESIA: MAC. ESTIMATED BLOOD LOSS: Minimal. INDICATIONS: As noted above. Risks and benefits explained in detail, but not limited to. Consent was obtained. DESCRIPTION OF PROCEDURE AND FINDINGS: The patient was taken to the OR. MAC anesthesia was induced. After official time-out, no disagreement in planned procedure. Digital rectal exam revealed some internal/external hemorrhoids. There were no signs of any large polyps or rectal masses on digital exam. Video colonoscope inserted and passed up through the somewhat poorly prepped colon with some liquidy, semi-solid, and some solid stool throughout the colon limiting the exam. The scope was slowly, carefully able to be passed around to the ascending colon to the terminal ileum. The distal part of the terminal ileum was grossly unremarkable when retroileoscopy was performed. No signs of any inflammatory bowel disease. On withdrawal of the scope, again somewhat poor prep with some liquidy, semi-solid stool limiting the exam. This was suction irrigated as well as possible, but did limit the exam for small lesions. There was a small polyp in the ascending colon. It was removed with hot snare polypectomy and brief bursts of cautery and another small, very early polyp vs raised lesion or hyperplastic lesion adjacent to it. It was removed with the hot biopsy forceps. Otherwise, it should be noted that there had been no signs of any obvious fresh or old blood in the colon. There was a small amount of ooze from the hot snare polypectomy site. It was watched for a brief period and appeared to have good hemostasis. Otherwise, the scope was slowly carefully withdrawn. Did have pancolonic diverticulosis most pronounced in the left colon. There was maybe some small old clot in some of these diverticula, but no fresh or active bleeding. Whether this has been the etiology of his recent rectal bleeding or not was unclear as no active bleeding currently. Otherwise, there were no signs of any large polyps, masses, or obstructing lesions. Back to the rectum, he had some internal/external hemorrhoids. [place] they were grade II/III hemorrhoids that may have contributed some to his rectal bleeding. [place] they warranted treatment. Scope was withdrawn. Half-tovar digital retractor was carefully inserted. First, the left lateral grasping the top edge of the hemorrhoid hopefully acquiring the feeding arterial. Suction court clerk was applied with a nice tuft of tissue. This was repeated in the right posterior and then the right anterior. Patient tolerated the procedure well. There were no immediate complications. Findings discussed with the family out in the waiting area. Again, no active bleeding. Whether he had had some bleeding from diverticular source or not is unclear, but no active bleeding currently. Will see him back in the office in a week or so to go over the results.
== END 2016-10-01 12:25 | disposition home or self-care (01) ==
LOC: ED 21:18 → MED SURG 23:32
PROVIDERS: ADMIT General Practice; ATTEND General Practice
PROC: 06LY4CC Occlusion of Hemorrhoidal Plexus with Extraluminal Device, Percutaneous Endoscopic Approach (ICD-10-PCS; principal; 2016-10-01)
PROC: 0DBK8ZX Excision of Ascending Colon, Via Natural or Artificial Opening Endoscopic, Diagnostic (ICD-10-PCS; 2016-10-01)
PROC: 0DBK8ZX Excision of Ascending Colon, Via Natural or Artificial Opening Endoscopic, Diagnostic (ICD-10-PCS; 2016-10-01)
PROC: 0DJD8ZZ Inspection of Lower Intestinal Tract, Via Natural or Artificial Opening Endoscopic (ICD-10-PCS; 2016-10-01)
DX: K57.33 Diverticulitis of large intestine without perforation or abscess with bleeding (principal); K64.4 Residual hemorrhoidal skin tags; K64.8 Other hemorrhoids; K92.1 Melena; D12.2 Benign neoplasm of ascending colon; K62.5 Hemorrhage of anus and rectum; K63.9 Disease of intestine, unspecified; M79.606 Pain in leg, unspecified; I10 Essential (primary) hypertension; Z79.899 Other long term (current) drug therapy
CPT/HCPCS: 00810; 36000; 36415; 74176; 80053; 81000; 82150; 82272; 83690; 85025; 85027; 85610; 85730; 86850; 86900; 86901; 86922; 87040; 93268; 96360; 96365; 96366; 96374; 96375; 99100; 99140; 99285; G0378; J0690; J1170; J1956; J2550; J2704; A9270-GY

== ENCOUNTER 2020-08-30 17:03 | Emergency (ER) | payer MEDICARE, OTHER ==
[2020-08-30] MEDS ORDERED: TORAdol 30 mg Injection IM ONE (17:18)
[2020-08-30] MEDS ORDERED: TORAdol 30 mg Injection ONE (17:20)
[2020-08-30] MEDS ORDERED: TENIVAC VIAL IM ONE ×2 (17:20→17:33)
--- NOTE | 2020-08-30 17:24 | ERPHSYRPT ---
- History of Present Illness Source: patient Exam Limitations: no limitations Patient Subjective Stated Complaint: pt cut left thumb with table saw, pt has laceration to left thumb Triage Nursing Assessment: pt alert, walked in,resp easy, skin w/d/p.face mask in place, has laceration to left thumb no bleeding Physician History: Patient is a 74-year-old male with laceration to left thumb. Patient cut it on table saw prior to arrival. Was able to get bleeding under control but is here for repair. Patient has full range of motion. Tetanus shot is not up-to-date. Denies any other injury. Occurred: just prior to arrival Method of Injury: incised Quality: constant Severity of Pain-Max: severe Severity of Pain-Current: moderate Extremities Pain Location: thumb: left Modifying Factors: Improves With: movement Associated Symptoms: none Allergies/Adverse Reactions: No Known Drug Allergies Allergy (Unverified 09/29/16 22:02) Home Medications: Atenolol 50 mg [Tenormin 50 mg] 50 mg PO DAILY 06/10/16 [History] Fenofibrate,Micronized 145 mg* [Tricor 145 MG] 145 mg PO DAILY 06/10/16 [History] Omeprazole 40 mg PO DAILY 06/10/16 [History] Tamsulosin HCl 0.4 mg [Flomax 0.4 MG] 0.4 mg PO DAILY 06/10/16 [History] Tramadol HCl [Tramadol HCl ER] 100 mg PO DAILY 06/10/16 [History] Hx Tetanus, Diphtheria Vaccination/Date Given: Yes (3-4 years) Hx Influenza Vaccination/Date Given: Yes Hx Pneumococcal Vaccination/Date Given: Yes Immunizations Up to Date: Yes Travel Risk - International Travel Have you traveled outside of the country in past 3 weeks: No - Coronavirus Screening Are you exhibiting any of the following symptoms?: No Close contact with a COVID-19 positive Pt in past 14-21 Days: No - Review of Systems Constitutional: No Fever, No Chills Eyes: No Symptoms Ears, Nose, & Throat: No Symptoms Respiratory: No Cough, No Dyspnea Cardiac: No Chest Pain, No Edema, No Syncope Abdominal/Gastrointestinal: No Abdominal Pain, No Nausea, No Vomiting, No Diarrhea Genitourinary Symptoms: No Dysuria Musculoskeletal: No Back Pain, No Neck Pain Skin: Other (Laceration), No Rash Neurological: No Dizziness, No Focal Weakness, No Sensory Changes Psychological: No Symptoms Endocrine: No Symptoms All Other Systems: Reviewed and Negative - Past Medical History Neurological History: No Pertinent History Cardiac History: No Pertinent History Respiratory History: No Pertinent History Endocrine Medical History: No Pertinent History Musculoskeletal History: Osteoarthritis GI Medical History: Crohns Disease Male Reproductive Disorders: Other Other Medical History: Crohns Disease - Past Surgical History Past Surgical History: Yes Gastrointestinal: Hernia Repair Musculoskeletal: Joint Replacement, Other Other Surgical History: right hip replacement bilat carpal tunnel - Social History Smoking Status: Former smoker Exposure to second hand smoke: No Drug Use: none Patient Lives Alone: No - Nursing Vital Signs Nursing Vital Signs: Initial Vital Signs Temperature 97.4 F 08/30/20 17:10 Pulse Rate 85 08/30/20 17:10 Respiratory Rate 18 08/30/20 17:10 Blood Pressure 146/68 08/30/20 17:10 O2 Sat by Pulse Oximetry 95 08/30/20 17:10 Pain Scale Pain Intensity 6 - Physical Exam General Appearance: alert Eyes, Ears, Nose, Throat Exam: moist mucous membranes Neck Exam: non-tender, supple Cardiovascular/Respiratory Exam: chest non-tender, normal breath sounds, regular rate/rhythm, no respiratory distress Abdominal Exam: non-tender, No guarding Back Exam: normal inspection, No vertebral tenderness Shoulder Exam: normal inspection Elbow/Forearm Exam: normal inspection Wrist Exam: normal inspection Hand Exam: laceration (Volar distal thumb approximate length 4 cm), soft tissue tenderness Neuro/Tendon Exam: normal sensation, normal motor functions Mental Status Exam: alert, oriented x 3, cooperative Skin Exam: normal color, warm, dry SpO2: 95 Procedures - Laceration/Wound Repair Left Dorsal Finger Time of Procedure: 18:27 Wound Location: Left Wound Length (cm): 4 Wound's Depth, Shape: into muscle, irregular Wound Explored: no foreign body noted Irrigated: No (Patient declined) Hibiclens Prep: Yes Wound Repaired With: Steri-strips, Dermabond Sterile Dressing Applied?: Yes Splint Applied?: No Sling Applied?: No - Course Nursing assessment & vital signs reviewed: Yes Ordered Tests: Active Orders 24 hr Category Date Time Status FINGER(S) Stat Exams 08/30/20 17:38 Taken Medication Summary Discontinued Medications Generic Name Dose Route Start Last Admin Trade Name Freq PRN Reason Stop Dose Admin Ketorolac Tromethamine 60 mg 08/30/20 17:18 08/30/20 17:27 Toradol 30 Mg Injection IM 08/30/20 17:19 60 mg STAT ONE Administration Ketorolac Tromethamine Confirm 08/30/20 17:20 Toradol 30 Mg Injection Administered 08/30/20 17:21 Dose 60 mg .ROUTE .STK-MED ONE Tetanus/Diphtheria Toxoids Adsorbed 0.5 ml 08/30/20 17:20 08/30/20 17:37 Tenivac Vial IM 08/30/20 17:21 0.5 ml .ONCE ONE Administration Tetanus/Diphtheria Toxoids Adsorbed Confirm 08/30/20 17:33 Tenivac Vial Administered 08/30/20 17:34 Dose 0.5 ml IM .STK-MED ONE - Progress Progress: improved Progress Note: 08/30/20 18:26 We will get x-ray of finger prior to repair. X-ray of finger appears to be fairly normal. There is what appears to be an avulsion fracture on the dorsal aspect of the PIP on one view. Upon examination of his thumb again, there is no tenderness swelling or deformity on the dorsal aspect of that joint or in the joint.. Most of the tenderness is obviously in the soft tissue bed of the thumb and the distal phalanx area. Patient declines sutures. Patient given tetanus shot. Will initially approximate wound edges with Steri-Strips and then glue. Precautions given. Bactrim DS x7 days. Advise close follow-up. Will discharge home. Counseled pt/family regarding: diagnosis, need for follow-up, rad results - Departure Departure Disposition: Home Clinical Impression: Laceration of finger Condition: Stable Critical Care Time: No Referrals: SULTANA TAN MD [Primary Care Provider] - Instructions: Laceration Repair With Glue (DC) Additional Instructions: Monitor symptoms closely. Please keep thumb dry for at least 5 days. Monitor for symptoms of infection. Those symptoms are redness, swelling, purulent drainage and increasing pain. You are given a prescription for antibiotics so please fill it and finish it. Follow-up with your PCP in 2 to 3 days for recheck. Return to ER if worse. Prescriptions: Smz/Tmp Ds Tablet [Bactrim Ds Tablet] 1 udtab PO BID #14 tablet
[2020-08-30 18:16] VITALS: BP 142/61; PULSE 54
[2020-08-30] MEDS ORDERED: BACTRIM DS TABLET PO STA (18:22)
[2020-08-30] MEDS ORDERED: BACTRIM DS TABLET PO ONE (18:24)
[2020-08-30 18:28] VITALS: O2SAT 95
--- NOTE | 2020-08-31 08:39 | XRAY ---
Indication: Laceration. Comparison: None 3 view left thumb demonstrates osteopenia and moderate degenerative changes base 1st metacarpal. Query tiny cortical fracture shaft distal phalanx palmar aspect. No other bony, articular, or soft tissue abnormalities.
== END 2020-08-30 18:59 | disposition home or self-care (01) ==
LOC: ED 17:03
DX: S61.012A Laceration without foreign body of left thumb without damage to nail, initial encounter (principal); W29.8XXA Contact with other powered hand tools and household machinery, initial encounter; Y92.9 Unspecified place or not applicable
CPT/HCPCS: 12002; 73140; 90471; 90714; 96372; 99284; J1885; A9270-GY

== ENCOUNTER 2021-04-08 16:53 | Emergency (ER) | payer MEDICARE, OTHER ==
[2021-04-08] MEDS ORDERED: BABY ASPIRIN 81 MG CHEW PO ONE (17:09)
[2021-04-08] MEDS ORDERED: Sodium Chloride 0.9% 1000 ML 1,000 ML IV STA (17:09)
[2021-04-08] MEDS ORDERED: Sodium Chloride 0.9% 1000 ML 1,000 ML ONE (17:16)
[2021-04-08] MEDS ORDERED: BABY ASPIRIN 81 MG CHEW ONE (17:16)
--- NOTE | 2021-04-08 17:28 | ERPHSYRPT ---
- History of Present Illness Time Seen by Provider: 04/08/21 16:56 Source: patient Exam Limitations: no limitations Patient Subjective Stated Complaint: palipitations Triage Nursing Assessment: Patient ambulated into ED and transferred self to bed. Patient A+O X3. Patient's skin pink, warm and dry. Patient states he slept most of the day and got up and was sitting on his porch around 3pm when he checked his pulse ox and said his pulse was 110- then went down to 30 according to his pulse ox. Patient states at that time he felt dizzy and nauseated. Patient currently denies pain or discomfort. Physician History: Patient is here with palpitations. Patient states palpitations lasted only a few minutes. Was accompanied with some nausea. States that he looked at his pulse oximeter at the time and it read his pulse anywhere between 104-75. Entire episode lasted 3 minutes. States that he is now back at his baseline. He has no other symptoms. Patient has no known history of SC or atrial fibrillation per him. Timing/Duration: today Severity: moderate Modifying Factors: Improves With: other Associated Symptoms: nausea Allergies/Adverse Reactions: No Known Drug Allergies Allergy (Verified 04/08/21 17:08) Home Medications: Atenolol 50 mg [Tenormin 50 mg] 50 mg PO DAILY 06/10/16 [History] Fenofibrate,Micronized 145 mg* [Tricor 145 MG] 145 mg PO DAILY 06/10/16 [History] Omeprazole 40 mg PO DAILY 06/10/16 [History] Tamsulosin HCl 0.4 mg [Flomax 0.4 MG] 0.4 mg PO DAILY 06/10/16 [History] Tramadol HCl [Tramadol HCl ER] 100 mg PO DAILY 06/10/16 [History] Hx Tetanus, Diphtheria Vaccination/Date Given: Yes (3-4 years) Hx Influenza Vaccination/Date Given: No Hx Pneumococcal Vaccination/Date Given: Yes Immunizations Up to Date: Yes Travel Risk - International Travel Have you traveled outside of the country in past 3 weeks: No - Coronavirus Screening Are you exhibiting any of the following symptoms?: No Close contact with a COVID-19 positive Pt in past 14-21 Days: No - Vaccine Status Have you recieved a Covid-19 vaccination: Yes [employer]: [employer] - Vaccination Dates Date of 2cond Vaccination (if applicable): August 2020 - Review of Systems Constitutional: No Fever, No Chills Eyes: No Symptoms Ears, Nose, & Throat: No Symptoms Respiratory: No Cough, No Dyspnea Cardiac: Palpitations, No Chest Pain, No Edema, No Syncope Abdominal/Gastrointestinal: Nausea, No Abdominal Pain, No Vomiting, No Diarrhea Genitourinary Symptoms: No Dysuria Musculoskeletal: No Back Pain, No Neck Pain Skin: No Rash Neurological: No Dizziness, No Focal Weakness, No Sensory Changes Psychological: No Symptoms Endocrine: No Symptoms All Other Systems: Reviewed and Negative - Past Medical History Neurological History: No Pertinent History Cardiac History: No Pertinent History Respiratory History: No Pertinent History Endocrine Medical History: No Pertinent History Musculoskeletal History: Osteoarthritis GI Medical History: Crohns Disease Male Reproductive Disorders: Other Other Medical History: Crohns Disease - Past Surgical History Past Surgical History: Yes Gastrointestinal: Hernia Repair Musculoskeletal: Joint Replacement, Other Other Surgical History: right hip replacement bilat carpal tunnel - Social History Smoking Status: Former smoker Exposure to second hand smoke: No Drug Use: none Patient Lives Alone: No - Nursing Vital Signs Nursing Vital Signs: Initial Vital Signs Temperature 97.5 F 04/08/21 17:09 Pulse Rate 65 04/08/21 17:09 Respiratory Rate 18 04/08/21 17:09 Blood Pressure 164/68 04/08/21 17:09 O2 Sat by Pulse Oximetry 97 04/08/21 17:09 Pain Scale Pain Intensity 0 - Physical Exam General Appearance: no apparent distress, alert Eye Exam: PERRL/EOMI, eyes nml inspection Ears, Nose, Throat Exam: normal ENT inspection, TMs normal, pharynx normal, moist mucous membranes Neck Exam: normal inspection, non-tender, supple, full range of motion Respiratory Exam: normal breath sounds, lungs clear, No respiratory distress Cardiovascular Exam: regular rate/rhythm, normal heart sounds, normal peripheral pulses Gastrointestinal/Abdomen Exam: soft, normal bowel sounds, No tenderness, No mass Back Exam: normal inspection, normal range of motion, No CVA tenderness, No vertebral tenderness Extremity Exam: normal inspection, normal range of motion, pelvis stable Neurologic Exam: alert, oriented x 3, cooperative, normal mood/affect, nml cerebellar function, nml station & gait, sensation nml, No motor deficits Skin Exam: normal color, warm, dry, No rash Lymphatic Exam: No adenopathy SpO2: 97 Ordered Tests: Active Orders 24 hr Category Date Time Status EKG-ER Only STAT Care 04/08/21 17:09 Active IV Insertion STAT Care 04/08/21 17:09 Active CHEST 2 VIEWS (PA AND LAT) Stat Exams 04/08/21 17:09 Taken CTA CHEST W AND/OR WO [CT] Stat Exams 04/08/21 18:15 Ordered CBC W DIFF Stat Lab 04/08/21 17:20 Completed CMP Stat Lab 04/08/21 17:20 Completed D-DIMER QUANTITATIVE Stat Lab 04/08/21 17:20 Completed MAGNESIUM Stat Lab 04/08/21 17:20 Completed NT PRO BNP Stat Lab 04/08/21 17:20 Completed TROPONIN Q3H Lab 04/08/21 17:20 Received TROPONIN Q3H Lab 04/08/21 20:15 Ordered TROPONIN Q3H Lab 04/08/21 23:15 Ordered TROPONIN Q3H Lab 04/09/21 02:15 Ordered TROPONIN Q3H Lab 04/09/21 05:15 Ordered UA W/RFX UR CULTURE Stat Lab 04/08/21 17:15 Completed Medication Summary Discontinued Medications Generic Name Dose Route Start Last Admin Trade Name Freq PRN Reason Stop Dose Admin Aspirin 324 mg 04/08/21 17:09 04/08/21 17:18 Aspirin 81 Mg Tab.Chew PO 04/08/21 17:10 324 mg STAT ONE Administration Aspirin Confirm 04/08/21 17:16 Aspirin 81 Mg Tab.Chew Administered 04/08/21 17:17 Dose 324 mg .ROUTE .STK-MED ONE Sodium Chloride 1,000 mls @ 999 mls/hr 04/08/21 17:09 04/08/21 18:18 Sodium Chloride 0.9% 1000 Ml IV 04/08/21 18:09 Infused .Q1H1M STA Infusion Sodium Chloride Confirm 04/08/21 17:16 Sodium Chloride 0.9% 1000 Ml Administered 04/08/21 17:17 Dose 1,000 mls @ ud .ROUTE .STK-MED ONE Lab/Rad Data: Laboratory Result Diagrams 04/08/21 17:20 04/08/21 17:20 Laboratory Results 04/08/21 04/08/21 04/08/21 Range/Units 17:20 17:20 17:20 WBC 7.6 (4.0-10.5) K/mm3 RBC 4.59 (4.1-5.6) M/mm3 Hgb 14.2 (12.5-18.0) gm/dl Hct 43.6 (42-50) % MCV 95.0 (78-100) fl MCH 30.9 (26-32) pg MCHC 32.6 (32-36) g/dl RDW 13.3 (11.5-14.0) % Plt Count 182 (150-450) K/mm3 MPV 10.9 (7.5-11.0) fl Gran % 55.9 (36.0-66.0) % Eos # (Auto) 0.26 (0-0.5) Absolute Lymphs (auto) 2.25 (1.0-4.6) Absolute Monos (auto) 0.82 (0.0-1.3) Lymphocytes % 29.6 (24.0-44.0) % Monocytes % 10.8 (0.0-12.0) % Eosinophils % 3.4 (0.00-5.0) % Basophils % 0.3 (0.0-0.4) % Absolute Granulocytes 4.24 (1.4-6.9) Basophils # 0.02 (0-0.4) D-Dimer 1014 H* (215-500) ng/mL Sodium 139 (137-145) mmol/L Potassium 3.7 (3.5-5.1) mmol/L Chloride 104 (98-107) mmol/L Carbon Dioxide 26 (22-30) mmol/L Anion Gap 12.2 (5-15) MEQ/L BUN 38 H (9-20) mg/dL Creatinine 1.32 H (0.66-1.25) mg/dL Estimated GFR 56.0 ML/MIN Glucose 100 (74-106) mg/dL Calcium 9.5 (8.4-10.2) mg/dL Magnesium 1.3 L (1.6-2.3) mg/dL Total Bilirubin 0.60 (0.2-1.3) mg/dL AST 27 (17-59) U/L ALT 18 (0-50) U/L Alkaline Phosphatase 46 (38-126) U/L NT-Pro-B Natriuret Pep 186 (0-1800) pg/mL Serum Total Protein 6.8 (6.3-8.2) g/dL Albumin 4.1 (3.5-5.0) g/dL Urine Color (YELLOW) Urine Appearance (CLEAR) Urine pH (5-6) Ur Specific [place] (1.005-1.025) Urine Protein (Negative) Urine Ketones (NEGATIVE) Urine Blood (0-5) Manny/ul Urine Nitrite (NEGATIVE) Urine Bilirubin (NEGATIVE) Urine Urobilinogen (0-1) mg/dL Ur Leukocyte Esterase (NEGATIVE) Urine WBC (Auto) (0-5) /HPF Urine RBC (Auto) (0-2) /HPF U Epithel Cells (Auto) (FEW) /HPF Urine Bacteria (Auto) (NEGATIVE) /HPF Urine Mucus (Auto) (NEGATIVE) /HPF Urine Culture Reflexed (NO) Urine Glucose (NEGATIVE) mg/dL 04/08/21 Range/Units 17:15 WBC (4.0-10.5) K/mm3 RBC (4.1-5.6) M/mm3 Hgb (12.5-18.0) gm/dl Hct (42-50) % MCV (78-100) fl MCH (26-32) pg MCHC (32-36) g/dl RDW (11.5-14.0) % Plt Count (150-450) K/mm3 MPV (7.5-11.0) fl Gran % (36.0-66.0) % Eos # (Auto) (0-0.5) Absolute Lymphs (auto) (1.0-4.6) Absolute Monos (auto) (0.0-1.3) Lymphocytes % (24.0-44.0) % Monocytes % (0.0-12.0) % Eosinophils % (0.00-5.0) % Basophils % (0.0-0.4) % Absolute Granulocytes (1.4-6.9) Basophils # (0-0.4) D-Dimer (215-500) ng/mL Sodium (137-145) mmol/L Potassium (3.5-5.1) mmol/L Chloride (98-107) mmol/L Carbon Dioxide (22-30) mmol/L Anion Gap (5-15) MEQ/L BUN (9-20) mg/dL Creatinine (0.66-1.25) mg/dL Estimated GFR ML/MIN Glucose (74-106) mg/dL Calcium (8.4-10.2) mg/dL Magnesium (1.6-2.3) mg/dL Total Bilirubin (0.2-1.3) mg/dL AST (17-59) U/L ALT (0-50) U/L Alkaline Phosphatase (38-126) U/L NT-Pro-B Natriuret Pep (0-1800) pg/mL Serum Total Protein (6.3-8.2) g/dL Albumin (3.5-5.0) g/dL Urine Color YELLOW (YELLOW) Urine Appearance CLEAR (CLEAR) Urine pH 6.0 (5-6) Ur Specific [place] 1.018 (1.005-1.025) Urine Protein NEGATIVE (Negative) Urine Ketones NEGATIVE (NEGATIVE) Urine Blood NEGATIVE (0-5) Manny/ul Urine Nitrite NEGATIVE (NEGATIVE) Urine Bilirubin NEGATIVE (NEGATIVE) Urine Urobilinogen 2 (0-1) mg/dL Ur Leukocyte Esterase NEGATIVE (NEGATIVE) Urine WBC (Auto) 3-5 (0-5) /HPF Urine RBC (Auto) 6-10 (0-2) /HPF U Epithel Cells (Auto) NONE (FEW) /HPF Urine Bacteria (Auto) RARE (NEGATIVE) /HPF Urine Mucus (Auto) SLIGHT (NEGATIVE) /HPF Urine Culture Reflexed NO (NO) Urine Glucose NEGATIVE (NEGATIVE) mg/dL - Progress Progress: improved Progress Note: 04/08/21 18:31 We will do a cardiac work-up on the patient including EKG, troponin, D-dimer. We will do a 3-hour troponin on the patient. Dimer was elevated. Therefore will obtain a CTA chest of the patient. 04/08/21 18:37 First troponin has not resulted yet. However CTA will still be obtained tonight. Patient will need 2 (-) troponins before going home. Will discuss with overnight physician about the plan. Patient will be checked out to Dr. Mancia. Myself and Dr. Mancia went over the plan in depth. Plan will be to f ollow-up on labs and imaging appropriately. Appropriate disposition based on reexam and rehistory. - Departure Clinical Impression: Palpitations, Elevated d-dimer Condition: Stable Critical Care Time: No Referrals: SULTANA TAN MD [Primary Care Provider] -
[2021-04-08 17:44] LABS: Absolute Neutrophil Ct (ANC) 4.24 (1.4-6.9); BASOPHIL % 0.3 % (0.0-0.4); Basophil (Absolute #) 0.02 (0-0.4); Eosinophil % 3.4 % (0.00-5.0); Eosinophil (Absolute #) 0.26 (0-0.5); Hematocrit 43.6 % (42-50); Hemoglobin 14.2 gm/dl (12.5-18.0); Lymphocyte (Absolute #) 2.25 (1.0-4.6); Lymphocytes % 29.6 % (24.0-44.0); Mean Corpuscular Hemoglobin 30.9 pg (26-32); Mean Corpuscular Hgb Concent. 32.6 g/dl (32-36); Mean Platelet Volume 10.9 fl (7.5-11.0); Monocyte (Absolute #) 0.82 (0.0-1.3); Monocytes % 10.8 % (0.0-12.0); Neutrophil % 55.9 % (36.0-66.0); Platelet Count 182 K/mm3 (150-450); Red Blood Count 4.59 M/mm3 (4.1-5.6); Red Cell Distribution Width 13.3 % (11.5-14.0); White Blood Count 7.6 K/mm3 (4.0-10.5)
[2021-04-08 17:50] LABS: Appearance CLEAR (CLEAR); Bacteria RARE /HPF (NEGATIVE); Bilirubin NEGATIVE (NEGATIVE); Blood NEGATIVE Ery/ul (0-5); Glucose NEGATIVE (NEGATIVE); Ketones NEGATIVE (NEGATIVE); Leukocyte Esterase NEGATIVE (NEGATIVE); Mucus SLIGHT /HPF (NEGATIVE); Nitrite NEGATIVE (NEGATIVE); Protein,Urine Dip NEGATIVE (Negative); Specific Gravity 1.018 (1.005-1.025); Urobilinogen 2 mg/dL (0-1)
[2021-04-08 18:08] LABS: ALBUMIN 4.1 g/dL (3.5-5.0); ANION GAP 12.2 MEQ/L (5-15); BILIRUBIN,TOTAL 0.6 mg/dL (0.2-1.3); Calcium 9.5 mg/dL (8.4-10.2); Creatinine 1 1.32 mg/dL (0.66-1.25); MAGNESIUM 1.3 mg/dL (1.6-2.3); Potassium 3.7 mmol/L (3.5-5.1); Total Protein 6.8 g/dL (6.3-8.2)
[2021-04-08] MEDS ORDERED: Magnesium 1 Gm / 100 Ml D5W*** 100 ML IV ONE ×2 (19:22→19:56)
[2021-04-08] MEDS: Magnesium 1 Gm / 100 Ml D5W*** 100 ML IV SCH ×2 (19:24→19:57)
[2021-04-08 20:56] VITALS: BP 150/71; PULSE 64; O2SAT 97
--- NOTE | 2021-04-09 08:38 | XRAY ---
Indication: Palpitations. Pneumonia. Comparison: May 15, 2018. PA/lateral chest remains hyperinflated with minimal left base fibrosis/scarring. No focal infiltrate, consolidation, or large effusion. Heart and mediastinal structures within normal limits. Bony thorax intact again with mild osteopenia and degenerative changes. Impression: Continued nonacute hyperinflated chest with chronic features.
--- NOTE | 2021-04-09 08:43 | XRAY ---
Indication: Palpitations. Elevated d-dimer. Multiple contiguous axial images obtained through the chest using 80 cc Isovue 370 contrast and PE protocol. Comparison: None There is good opacification of the pulmonary arteries to include the lobar and segmental branches. No pulmonary embolus. Heart is not enlarged. Aorta minimally arteriosclerotic without aneurysm/dissection. No pathologic mediastinal/hilar lymphadenopathy. Lungs demonstrates minimal scattered fibrosis/scarring bilaterally and tiny right upper lobe calcified granuloma. No suspicious pulmonary mass, infiltrate, or effusion. Bony thorax intact with mild osteopenia and mild degenerative changes throughout the spine. Limited upper abdomen demonstrates a few incompletely visualized bilateral renal cysts largest right midpole measuring 4 cm. Impression: 1. Negative pulmonary was. No acute cardiopulmonary abnormalities. 2. Incidental scattered pulmonary fibrosis/scarring, old granulomatous disease, chronic bony findings, and bilateral renal cysts.
== END 2021-04-08 21:03 | disposition home or self-care (01) ==
LOC: ED 16:53
DX: R00.2 Palpitations (principal); R79.89 Other specified abnormal findings of blood chemistry
CPT/HCPCS: 36000; 36415; 71046; 71260; 80053; 81001; 83735; 83880; 84443; 84484; 85025; 85379; 93005; 96365; 99284; J3475; A9270-GY

== ENCOUNTER 2022-08-19 20:46 | Emergency (ER) | payer MEDICARE, OTHER ==
[2022-08-19] MEDS ORDERED: Mucinex 600MG ER Tabs PO ONE (21:57)
[2022-08-19] MEDS ORDERED: NEOSYNEPHRINE 0.5% NASAL SPRAY/DROPS NS ONE (21:58)
--- NOTE | 2022-08-19 22:02 | ERPHSYRPT ---
- History of Present Illness Source: patient Exam Limitations: no limitations Patient Subjective Stated Complaint: pt states that I have nasal congestion. I had a EGD done a month ago. Ever since then I had trouble swallowing. Triage Nursing Assessment: pt ambulated into the er; pt is axo x4; c/o difficulty swallowing; pt denies pain; pt has nasal congestion; no respiratory distress present; vitals wnl Physician History: Presents with rhinorrhea, nasal congestion, headache, sore throat and cough, non-productive. No SOB/wheezing. No fever. + difficulty swallowing pills and some solids for the past 1 day Denies CP, palpitations, SOB, abd pain or swelling. Timing/Duration: yesterday Cough Quality/Degree: mild, dry cough Possible Cause: occasional episodes Associated Symptoms: cough, facial pain, headache, muscle aches, nasal congestion, nasal drainage, No fever, No chills, No chest pain/soreness, No dizziness, No earache, No lightheadedness, No shortness of breath Allergies/Adverse Reactions: No Known Drug Allergies Allergy (Verified 08/19/22 20:57) Home Medications: Atenolol 50 mg [Tenormin 50 mg] 25 mg PO DAILY 06/10/16 [History] Fenofibrate,Micronized 145 mg* [Tricor 145 MG] 145 mg PO DAILY 06/10/16 [History] Omeprazole 40 mg PO BID 06/10/16 [History] Tamsulosin HCl 0.4 mg [Flomax 0.4 MG] 0.4 mg PO DAILY 06/10/16 [History] Tramadol HCl [Tramadol HCl ER] 100 mg PO DAILY 06/10/16 [History] Adalimumab [Humira(Cf) Pen] 40 mg SQ WEEKLY 08/19/22 [History] Amoxicillin 1,000 mg PO BID 08/19/22 [History] Clarithromycin [Clarithromycin ER] 500 mg PO BID 08/19/22 [History] Hx Tetanus, Diphtheria Vaccination/Date Given: Yes Hx Influenza Vaccination/Date Given: Yes Hx Pneumococcal Vaccination/Date Given: Yes Travel Risk - International Travel Have you traveled outside of the country in past 3 weeks: No - Coronavirus Screening Are you exhibiting any of the following symptoms?: No Close contact with a COVID-19 positive Pt in past 14-21 Days: No - Vaccine Status Have you recieved a Covid-19 vaccination: Yes 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[employer] - Vaccination Dates Date of 2cond Vaccination (if applicable): August 2020 - Review of Systems Constitutional: No Fever, No Chills Eyes: No Symptoms Ears, Nose, & Throat: Nose Congestion, Nose Discharge, Sinus Drainage, Painful Swallowing, No Ear Pain, No Hearing Changes Respiratory: Cough, No Dyspnea, No Dyspnea on Exertion (HAIR), No Wheezing Cardiac: No Chest Pain, No Palpitations Abdominal/Gastrointestinal: Dysphagia Genitourinary Symptoms: No Symptoms Musculoskeletal: No Symptoms Skin: No Symptoms Neurological: No Symptoms - Past Medical History Pertinent Past Medical History: Yes Neurological History: No Pertinent History Cardiac History: No Pertinent History Respiratory History: No Pertinent History Endocrine Medical History: No Pertinent History Musculoskeletal History: Osteoarthritis GI Medical History: Crohns Disease Male Reproductive Disorders: Other Other Medical History: Crohns Disease - Past Surgical History Past Surgical History: Yes Gastrointestinal: Hernia Repair Musculoskeletal: Joint Replacement, Other Other Surgical History: right hip replacement bilat carpal tunnel - Social History Smoking Status: Former smoker Exposure to second hand smoke: No Drug Use: none Patient Lives Alone: No - Nursing Vital Signs Nursing Vital Signs: Initial Vital Signs Temperature 97.8 F 08/19/22 20:55 Pulse Rate 58 L 08/19/22 20:55 Respiratory Rate 20 08/19/22 20:55 Blood Pressure 136/68 08/19/22 20:55 O2 Sat by Pulse Oximetry 97 08/19/22 20:55 Pain Scale Pain Intensity 0 - Physical Exam General Appearance: no apparent distress Eye Exam: eyes nml inspection Ears, Nose, Throat Exam: TMs normal, pharyngeal erythema, No tonsillar exudate Neck Exam: non-tender, supple, full range of motion, No lymphadenopathy Respiratory Exam: normal breath sounds, No lungs clear, No respiratory distress Cardiovascular Exam: regular rate/rhythm, normal heart sounds, capillary refill <2 sec Gastrointestinal/Abdomen Exam: soft, normal bowel sounds, No tenderness, No guarding, No rebound Skin Exam: normal color, warm SpO2 Interpretation: normal SpO2: 97 O2 Delivery: Room Air - Course Nursing assessment & vital signs reviewed: Yes Ordered Tests: Medication Summary Discontinued Medications Generic Name Dose Route Start Last Admin Trade Name Freq PRN Reason Stop Dose Admin Guaifenesin 1,200 mg 08/19/22 21:57 08/19/22 22:15 Guaifenesin 600 Mg Tablet Er PO 08/19/22 21:58 1,200 mg ONCE ONE Administration Phenylephrine HCl 15 ml 08/19/22 21:58 08/19/22 22:12 Neosynephrine 0.5% Nasal Sharon/Drops NS 08/19/22 21:59 15 ml STAT ONE Administration Phenylephrine HCl Confirm 08/19/22 22:08 Neosynephrine 0.5% Nasal Sharon/Drops Administered 08/19/22 22:09 Dose 15 ml .ROUTE .STK-MED ONE - Progress Progress: improved Air Movement: good Progress Note: Likely viral URI Reassurance. Supportive care. Increase fluid intake, rest. Fever control with Tylenol/Ibuprofen. Mucinex, Apherine spray Salt water gargles, ice chips to soothe throat tid. Lozenges. Increase humidity using humidifier by bedside. Exposure to steam for expectoration. Nasal saline prn. Return to clinic if not improved over the next several days, or if getting worse. Blood Culture(s) Obtained: No Antibiotics given: No Counseled pt/family regarding: diagnosis Medical Desision Making - Risk of complications The pt has a mod risk of morbidity or mortality based on: Need for prescription drug management - Departure Departure Disposition: Home Clinical Impression: Viral URI, Pill dysphagia Condition: Good Critical Care Time: No Referrals: SULTANA TAN MD [Primary Care Provider] - Follow up/PCP as directed Instructions: Viral Upper Respiratory Infection, Adult (DC)
[2022-08-19] MEDS ORDERED: NEOSYNEPHRINE 0.5% NASAL SPRAY/DROPS ONE (22:08)
[2022-08-19 22:22] VITALS: BP 152/74; PULSE 57
[2022-08-21 17:29] VITALS: O2SAT 97
== END 2022-08-19 22:35 | disposition home or self-care (01) ==
LOC: ED 20:46
DX: J06.9 Acute upper respiratory infection, unspecified (principal); R13.19 Other dysphagia; R09.81 Nasal congestion; R51.9 Headache, unspecified; R05.9 Cough, unspecified; Z79.899 Other long term (current) drug therapy
CPT/HCPCS: 99282; A9270-GY

== ENCOUNTER 2023-01-10 07:41 | Emergency (ER) | payer MEDICARE, OTHER ==
[2023-01-10 08:00] VITALS: TEMP 96.8
[2023-01-10] MEDS ORDERED: Zofran 4 MG/2 ML VIAL ONE (08:10)
[2023-01-10] MEDS ORDERED: TORAdol 30 mg Injection ONE (08:10)
[2023-01-10] MEDS ORDERED: Sodium Chloride 0.9% 1000 ML 1,000 ML ONE ×2 (08:10→09:55)
[2023-01-10] MEDS: TORAdol 30 mg Injection IV ONE (08:12)
[2023-01-10] MEDS: Zofran 4 MG/2 ML VIAL IV ONE (08:12)
[2023-01-10] MEDS: Sodium Chloride 0.9% 1000 ML 1,000 ML IV STA (08:12)
--- NOTE | 2023-01-10 08:12 | ERPHSYRPT ---
- History of Present Illness Time Seen by Provider: 01/10/23 08:06 Source: patient Exam Limitations: no limitations Patient Subjective Stated Complaint: L flank pain and nausea since 629 Triage Nursing Assessment: . Physician History: Patient is a 77-year-old male presents to our ED for evaluation of left flank pain. Patient has a history of kidney stones. Patient states symptoms are the same. Symptoms started approximately 6:30 AM. Patient felt the sudden onset of left flank pain coupled with nausea. No vomiting. Symptoms are constant. Symptoms are moderate in intensity. No specific worsening or improving factors. Patient denies trauma. No associated fevers. No obvious hematuria. No chest pain or shortness of breath. Patient otherwise feels well. Significant other at bedside. They voiced no other complaints or concerns at this time. Portions of this note were created with voice recognition technology. There may be grammatical, spelling, punctuation or sound alike errors Timing/Duration: today Severity: moderate Modifying Factors: Improves With: nothing Associated Symptoms: nausea Allergies/Adverse Reactions: No Known Drug Allergies Allergy (Verified 01/10/23 07:59) Home Medications: Atenolol 50 mg [Tenormin 50 mg] 25 mg PO DAILY 06/10/16 [History] Fenofibrate,Micronized 145 mg* [Tricor 145 MG] 145 mg PO DAILY 06/10/16 [History] Omeprazole 40 mg PO BID 06/10/16 [History] Tamsulosin HCl 0.4 mg [Flomax 0.4 MG] 0.4 mg PO DAILY 06/10/16 [History] Tramadol HCl [Tramadol HCl ER] 100 mg PO DAILY 06/10/16 [History] Adalimumab [Humira(Cf) Pen] 40 mg SQ WEEKLY 08/19/22 [History] Hx Tetanus, Diphtheria Vaccination/Date Given: Yes Hx Influenza Vaccination/Date Given: Yes Hx Pneumococcal Vaccination/Date Given: Yes Travel Risk - International Travel Have you traveled outside of the country in past 3 weeks: No - Coronavirus Screening Are you exhibiting any of the following symptoms?: No Close contact with a COVID-19 positive Pt in past 14-21 Days: No - Vaccine Status Have you recieved a Covid-19 vaccination: 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: [employer] - Vaccination Dates Date of 2cond Vaccination (if applicable): August 2020 - Review of Systems Constitutional: No Symptoms, No Fever, No Chills Eyes: No Symptoms Ears, Nose, & Throat: No Symptoms Respiratory: No Symptoms, No Cough, No Dyspnea Cardiac: No Symptoms, No Chest Pain, No Edema, No Syncope Abdominal/Gastrointestinal: No Symptoms, No Abdominal Pain, No Nausea, No Vomiting, No Diarrhea Genitourinary Symptoms: No Symptoms, No Dysuria Musculoskeletal: No Symptoms, No Back Pain, No Neck Pain Skin: No Symptoms, No Rash Neurological: No Symptoms, No Dizziness, No Focal Weakness, No Sensory Changes Psychological: No Symptoms Endocrine: No Symptoms Hematologic/Lymphatic: No Symptoms Immunological/Allergic: No Symptoms All Other Systems: Reviewed and Negative - Past Medical History Pertinent Past Medical History: Yes Neurological History: No Pertinent History Cardiac History: No Pertinent History Respiratory History: No Pertinent History Endocrine Medical History: No Pertinent History Musculoskeletal History: Osteoarthritis GI Medical History: Crohns Disease Male Reproductive Disorders: Other Other Medical History: Crohns Disease - Past Surgical History Past Surgical History: Yes Gastrointestinal: Hernia Repair Musculoskeletal: Joint Replacement, Other Other Surgical History: right hip replacement bilat carpal tunnel - Social History Smoking Status: Former smoker Exposure to second hand smoke: No Drug Use: none Patient Lives Alone: No - Nursing Vital Signs Nursing Vital Signs: Initial Vital Signs Temperature 96.8 F 01/10/23 07:53 Pulse Rate 58 L 01/10/23 07:53 Respiratory Rate 16 01/10/23 07:53 Blood Pressure 159/68 01/10/23 07:53 O2 Sat by Pulse Oximetry 99 01/10/23 07:53 Pain Scale Pain Intensity 7 - Physical Exam General Appearance: no apparent distress, alert Eye Exam: PERRL/EOMI, eyes nml inspection Ears, Nose, Throat Exam: normal ENT inspection, TMs normal, pharynx normal, moist mucous membranes Neck Exam: normal inspection, non-tender, supple, full range of motion Respiratory Exam: normal breath sounds, lungs clear, airway intact, No respiratory distress Cardiovascular Exam: regular rate/rhythm, normal heart sounds, normal peripheral pulses Gastrointestinal/Abdomen Exam: soft, normal bowel sounds, No tenderness, No mass Back Exam: normal inspection, normal range of motion, No CVA tenderness, No vertebral tenderness Extremity Exam: normal inspection, normal range of motion, pelvis stable Neurologic Exam: alert, oriented x 3, cooperative, normal mood/affect, nml cerebellar function, nml station & gait, sensation nml, No motor deficits Skin Exam: normal color, warm, dry, No rash Lymphatic Exam: No adenopathy SpO2 Interpretation: normal SpO2: 99 O2 Delivery: Room Air - Course Nursing assessment & vital signs reviewed: Yes - CT Exams Abdomen/Pelvis CT Interpretation: Tele-radiologist Report (5 to 6 mm left UPJ stone with hydronephrosis and perinephric stranding. Nephrolithiasis, bilateral renal cyst, sigmoid diverticulosis, aortoiliac calcifications) Ordered Tests: Active Orders 24 hr Category Date Time Status IV Insertion STAT Care 01/10/23 08:07 Active ABDOMEN AND PELVIS W/0 CONTRAS [CT] Stat Exams 01/10/23 08:07 Completed CBC W DIFF Stat Lab 01/10/23 08:12 Completed CMP Stat Lab 01/10/23 08:12 Completed UA W/RFX UR CULTURE Stat Lab 01/10/23 08:09 Completed Medication Summary Generic Name Dose Route Start Last Admin Trade Name Freq PRN Reason Stop Dose Admin Sodium Chloride 1,000 mls @ 100 mls/hr 01/10/23 10:00 Sodium Chloride 0.9% 1000 Ml IV 02/09/23 09:59 .Q10H VIKTOR Discontinued Medications Generic Name Dose Route Start Last Admin Trade Name Freq PRN Reason Stop Dose Admin Sodium Chloride 1,000 mls @ 999 mls/hr 01/10/23 08:07 01/10/23 09:22 Sodium Chloride 0.9% 1000 Ml IV 01/10/23 09:07 Infused .Q1H1M STA Infusion Sodium Chloride Confirm 01/10/23 08:10 Sodium Chloride 0.9% 1000 Ml Administered 01/10/23 08:11 Dose 1,000 mls @ ud .ROUTE .STK-MED ONE Ketorolac Tromethamine 30 mg 01/10/23 08:07 01/10/23 08:12 Ketorolac Tromethamine 30 Mg/Ml Inj IV 01/10/23 08:08 30 mg STAT ONE Administration Ketorolac Tromethamine Confirm 01/10/23 08:10 Ketorolac Tromethamine 30 Mg/Ml Inj Administered 01/10/23 08:11 Dose 30 mg .ROUTE .STK-MED ONE Morphine Sulfate 2 mg 01/10/23 09:07 01/10/23 09:13 Morphine Sulfate 2 Mg/Ml Inj IV 01/10/23 09:08 2 mg STAT ONE Administration Morphine Sulfate Confirm 01/10/23 09:12 Morphine Sulfate 2 Mg/Ml Inj Administered 01/10/23 09:13 Dose 2 mg .ROUTE .STK-MED ONE Morphine Sulfate 4 mg 01/10/23 09:49 Morphine Sulfate 4 Mg/Ml Injection IV 01/10/23 09:50 STAT ONE Ondansetron HCl 4 mg 01/10/23 08:07 01/10/23 08:12 Ondansetron Hcl 4 Mg/2 Ml Vial IV 01/10/23 08:08 4 mg STAT ONE Administration Ondansetron HCl Confirm 01/10/23 08:10 Ondansetron Hcl 4 Mg/2 Ml Vial Administered 01/10/23 08:11 Dose 4 mg .ROUTE .STK-MED ONE Lab/Rad Data: Laboratory Result Diagrams 01/10/23 08:12 01/10/23 08:12 Laboratory Results 01/10/23 01/10/23 01/10/23 Range/Units 08:12 08:12 08:09 WBC 8.7 (4.0-10.5) x10^3/uL RBC 4.64 (4.1-5.6) x10^6/uL Hgb 13.5 (12.5-18.0) g/dL Hct 43.6 (42-50) % MCV 94.0 (78-100) fL MCH 29.1 (26-32) pg MCHC 31.0 L (32-36) g/dL RDW 13.0 (11.5-14.0) % Plt Count 197 (150-450) x10^3/uL MPV 10.7 (7.5-11.0) fL Gran % 45.0 (36.0-66.0) % Immature Gran % (Auto) 0.2 (0.00-0.4) % Nucleat RBC Rel Count 0.0 (0.00-0.1) % Eos # (Auto) 0.33 (0-0.5) x10^3/uL Immature Gran # (Auto) 0.02 (0.00-0.03) x10^3u/L Absolute Lymphs (auto) 3.79 (1.0-4.6) x10^3/uL Absolute Monos (auto) 0.55 (0.0-1.3) x10^3/uL Absolute Nucleated RBC 0.00 (0.00-0.01) x10^3u/L Lymphocytes % 43.8 (24.0-44.0) % Monocytes % 6.4 (0.0-12.0) % Eosinophils % 3.8 (0.00-5.0) % Basophils % 0.8 (0.0-0.4) % Absolute Granulocytes 3.89 (1.4-6.9) x10^3/uL Basophils # 0.07 (0-0.4) x10^3/uL Sodium 140 (137-145) mmol/L Potassium 4.4 (3.5-5.1) mmol/L Chloride 108 H (98-107) mmol/L Carbon Dioxide 24 (22-30) mmol/L Anion Gap 12.1 (5-15) MEQ/L BUN 38 H (9-20) mg/dL Creatinine 1.31 H (0.66-1.25) mg/dL Estimated GFR 56.2 ML/MIN Glucose 131 H (74-106) mg/dL Calcium 9.0 (8.4-10.2) mg/dL Total Bilirubin 0.70 (0.2-1.3) mg/dL AST 35 (17-59) U/L ALT 24 (0-50) U/L Alkaline Phosphatase 57 (38-126) U/L Serum Total Protein 7.7 (6.3-8.2) g/dL Albumin 4.0 (3.5-5.0) g/dL Urine Color Yellow (Yellow) Urine Appearance Clear (Clear) Urine pH 5.5 (4.6-8.0) Ur Specific [place] 1.020 (1.005-1.030) Urine Protein Trace A (Negative) Urine Glucose (UA) Negative (Negative) mg/dL Urine Ketones Negative (Negative) Urine Blood Small A (Negative) Urine Nitrite Negative (Negative) Urine Bilirubin Negative (Negative) Urine Urobilinogen 1.0 A (0.2) mg/dL Ur Leukocyte Esterase Negative (Negative) U Hyaline Cast (Auto) NONE SEEN (0-2) /LPF Urine Microscopic RBC 6-10 A (0-5) /HPF Urine Microscopic WBC 0-2 (0-5) /HPF Ur Epithelial Cells None Seen (None Seen) /HPF Urine Bacteria None Seen (None Seen) /HPF Urine Culture Reflexed NO (NO) - Progress Progress: improved Progress Note: Patient reassessed. Patient still having significant left flank pain and spite of both Toradol and morphine. Work-up reveals a 5 to 6 mm UPJ stone. There is hydronephrosis observed and perinephric stranding. There is compromise kidney function with an elevated creatinine of 1.31. This is significantly off of patient's baseline. Patient states he has needed lithotripsy in the past. His urologist is Dr. Do. Patient and requesting transfer to [facility]. I spoke to Dr. Crane ER physician at [facility] who accepts transfer at 9:42 AM. 01/10/23 09:44 Patient is a 77-year-old male presents to our ED with acute onset left flank pain. Patient has had obstructive kidney stones in the past. Patient states his symptoms are the same. Physical exam unremarkable. Patient received a CAT scan which reveals a left UPJ stone with hydronephrosis and perinephric stranding. Compromised renal function as evidenced by elevated creatinine. Test include CBC CMP. CMP reveals elevated creatinine. Urinalysis reveals microscopic hematuria. Patient received initial dose of Toradol for pain control. However pain recurred. Patient received a 2 mg dose of morphine later followed by a 4 mg dose of morphine due to ongoing pain. Zofran administered for nausea. Patient received 1 L bolus IV fluids. A second liter now running at 100 an hour. Patient accepted at [facility] for further evaluation and treatment. Patient's urologist is Dr. Claudio warner. Significant other at bedside. They are requesting transfer to [facility] to see Dr. Do. Complexity of problems addressed is moderate, acute complicated. No critical care time Complexity of data reviewed and analyzed is extensive. Test ordered test reviewed and analyzed. Clinical correlation made between results of laboratory findings/imaging studies and history and physical examination. Based on patient's history, abnormal lab findings and the size and location of the kidney stone patient will require higher level of care. Patient will be transferred to [facility] for further evaluation and treatment. Management and plan of care discussed with Dr. Crane excepting physician at [facility]. Risk of complication and or risk of morbidity/mortality of patient management is high. Patient received IV controlled medications for pain control. These medications require monitoring. Patient will be transferred to a higher level of care. Hospitalization indicated. Vital stable. Plan of care established for shared decision making. Patient/s ignificant other at bedside voiced no other complaints or concerns at this time. Portions of this note were created with voice recognition technology. There may be grammatical, spelling, punctuation or sound alike errors 01/10/23 09:51 Counseled pt/family regarding: lab results, diagnosis, rad results - Departure Departure Disposition: Home Clinical Impression: Acute renal injury, Microscopic hematuria, Renal colic, Flank pain, Ureterolithiasis, Hydronephrosis, Perinephric stranding, Nephrolithiasis, Bilateral renal cysts, Sigmoid diverticulosis, Aortoiliac calcification Condition: Stable Critical Care Time: No Referrals: SULTANA TAN MD [Primary Care Provider] - Follow up/PCP as directed WATSON DO [COURTESY STAFF] - Follow up/PCP as directed Additional Instructions: Discharge/Care Plan GORDODORA BOONE was seen on 01/10/23 in the Emergency Room. The patient was counseled regarding Diagnosis,Lab results, Imaging studies, need for follow up and when to return to the Emergency Room. Prescriptions given: Discharge Note I have spoken with the patient and/or caregivers. I have explained the patient's condition, diagnosis and treatment plan based on the information available to me at this time. I have answered the patient's and/or caregiver's questions and addressed any concerns. The patient and/or caregivers have as good understanding of the patient's diagnosis, condition and treatment plan as can be expected at this point. The vital signs have been stable. The patient's condition is stable and appropriate for discharge from the emergency department. The patient will pursue further outpatient evaluation with the primary care physician or other designated or consulting physician as outlined in the discharge instructions. The patient and/or caregivers are agreeable to this plan of care and follow-up instructions have been explained in detail. The patient and/or caregivers have received these instruction. The patient/and or caregivers are aware that any significant change in condition or worsening of symptoms should prompt an immediate return to this or the closest emergency department or call 911.
[2023-01-10 08:15] LABS: Absolute Neutrophil Ct (ANC) 3.89 x10^3/uL (1.4-6.9); BASOPHIL % 0.8 % (0.0-0.4); Basophil (Absolute #) 0.07 x10^3/uL (0-0.4); Eosinophil % 3.8 % (0.00-5.0); Eosinophil (Absolute #) 0.33 x10^3/uL (0-0.5); Hematocrit 43.6 % (42-50); Hemoglobin 13.5 g/dL (12.5-18.0); IMMATURE GRAN # 0.02 x10^3u/L (0.00-0.03); IMMATURE GRAN % 0.2 % (0.00-0.4); Lymphocyte (Absolute #) 3.79 x10^3/uL (1.0-4.6); Lymphocytes % 43.8 % (24.0-44.0); Mean Corpuscular Hemoglobin 29.1 pg (26-32); Mean Platelet Volume 10.7 fL (7.5-11.0); Monocyte (Absolute #) 0.55 x10^3/uL (0.0-1.3); Monocytes % 6.4 % (0.0-12.0); Platelet Count 197 x10^3/uL (150-450); Red Blood Count 4.64 x10^6/uL (4.1-5.6); White Blood Count 8.7 x10^3/uL (4.0-10.5)
[2023-01-10 08:22] LABS: ANION GAP 12.1 MEQ/L (5-15); BILIRUBIN,TOTAL 0.7 mg/dL (0.2-1.3); Creatinine 1 1.31 mg/dL (0.66-1.25); EST GLOMERULAR FILTRATION RATE 56.2 ML/MIN; Potassium 4.4 mmol/L (3.5-5.1); Total Protein 7.7 g/dL (6.3-8.2)
[2023-01-10 08:24] LABS: Appearance Clear (Clear); Bacteria None Seen /HPF (None Seen); Bilirubin Negative (Negative); Epithelial Cells None Seen /HPF (None Seen); Glucose, Urine Negative (Negative); Hyaline Casts NONE SEEN /LPF (0-2); Ketones Negative (Negative); Leukocyte Esterase Negative (Negative); Nitrite Negative (Negative); Ph 5.5 (4.6-8.0); Protein,Urine Dip Trace (Negative); WBC 0-2 /HPF (0-5)
[2023-01-10 08:28] LABS: Blood Small (Negative)
[2023-01-10] MEDS ORDERED: MORPHINE SULFATE 2 MG INJ ONE (09:12)
[2023-01-10] MEDS: MORPHINE SULFATE 2 MG INJ IV ONE (09:13)
--- NOTE | 2023-01-10 09:15 | XRAY ---
Indication: Left flank pain. History kidney stones. Multiple contiguous axial images obtained through the abdomen and pelvis without contrast using renal stone protocol. Comparison: September 29, 2016 Lung bases again hyperinflated with minimal lingula fibrosis/scarring. Heart is not enlarged. New 5-6 mm left UPJ calculus with mild hydronephrosis and minimal perinephric stranding. No free fluid/air. There remains additional bilateral renal micro-calculi slightly increased in size and number. Grossly stable bilateral renal cysts again largest on the right measuring 10.5 cm. Noncontrasted stomach and bowel loops nonobstructed with normal appendix. Again minimal sigmoid diverticulosis without diverticulitis. Remaining liver, gallbladder, pancreas, spleen, adrenal glands, kidneys, ureters, and bladder are unremarkable for noncontrast exam. Stable mild scattered aortoiliac calcifications without AAA. Osseous structures intact again with osteopenia, minimal/mild degenerative changes throughout the spine, mild left hip degenerative arthropathy, and right total hip arthroplasty. Impression: 1. New 5-6 mm left UPJ calculus producing partial obstruction as detailed. 2. Again bilateral renal micro-calculi, bilateral renal cysts, sigmoid diverticulosis, arteriosclerotic disease, and chronic bony findings.
[2023-01-10 09:17] VITALS: BP 144/61; PULSE 61; RESP 18
[2023-01-10 09:32] VITALS: O2SAT 99
[2023-01-10] MEDS ORDERED: MORPHINE SULFATE 4 MG INJ ONE (09:54)
[2023-01-10] MEDS: MORPHINE SULFATE 4 MG INJ IV ONE (09:56)
[2023-01-10] MEDS: Sodium Chloride 0.9% 1000 ML 1,000 ML IV SCH (09:56)
[2023-01-10 11:35] LABS: ADD URINE CULTURE? YES (NO)
== END 2023-01-10 10:30 | disposition short-term general hospital (02) ==
LOC: ED 07:41
DX: N17.9 Acute kidney failure, unspecified (principal); R31.29 Other microscopic hematuria; N13.2 Hydronephrosis with renal and ureteral calculous obstruction; Z87.442 Personal history of urinary calculi; R10.9 Unspecified abdominal pain; R93.429 Abnormal radiologic findings on diagnostic imaging of unspecified kidney; N28.1 Cyst of kidney, acquired; K57.30 Diverticulosis of large intestine without perforation or abscess without bleeding; I70.0 Atherosclerosis of aorta; R11.0 Nausea; Z79.899 Other long term (current) drug therapy
CPT/HCPCS: 36000; 36415; 74176; 80053; 81001; 85025; 87086; 96360; 96361; 96374; 96375; 96376; 99285; J1885; J2270; J2405

== ENCOUNTER 2023-01-10 23:10 | Emergency (ER) | payer MEDICARE, OTHER ==
[2023-01-10 23:45] VITALS: TEMP 98.8
--- NOTE | 2023-01-10 23:45 | ERPHSYRPT ---
- History of Present Illness Time Seen by Provider: 01/10/23 23:40 Source: patient Exam Limitations: no limitations Physician History: Patient is a 77-year-old male presents to our ED for the second time today. Patient was seen earlier today patient diagnosed with a obstructing kidney stone. Patient was discharged home. Patient states his pain recurred. Patient went to [facility]. Patient states he met with his urologist and stone was extracted. Patient was discharged home. Patient has not urinated since. Patient called his urologist advised him to come to our ED for Santamaria catheter in the event that he is unable to urinate. at bedside. They voiced no other complaints or concerns at this time. Portions of this note were created with voice recognition technology. There may be grammatical, spelling, punctuation or sound alike errors Timing/Duration: today Severity: moderate Modifying Factors: Improves With: nothing Associated Symptoms: denies symptoms Allergies/Adverse Reactions: No Known Drug Allergies Allergy (Verified 01/10/23 23:36) Home Medications: Atenolol 50 mg [Tenormin 50 mg] 25 mg PO DAILY 06/10/16 [History] Fenofibrate,Micronized 145 mg* [Tricor 145 MG] 145 mg PO DAILY 06/10/16 [History] Omeprazole 40 mg PO BID 06/10/16 [History] Tamsulosin HCl 0.4 mg [Flomax 0.4 MG] 0.4 mg PO DAILY 06/10/16 [History] Tramadol HCl [Tramadol HCl ER] 100 mg PO DAILY 06/10/16 [History] Adalimumab [Humira(Cf) Pen] 40 mg SQ WEEKLY 08/19/22 [History] Hx Tetanus, Diphtheria Vaccination/Date Given: Yes Hx Influenza Vaccination/Date Given: Yes Hx Pneumococcal Vaccination/Date Given: Yes Travel Risk - Vaccine Status Have you recieved a Covid-19 vaccination: Yes 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 Agent: [employer] - Vaccination Dates Date of 2cond Vaccination (if applicable): August 2020 - Review of Systems Constitutional: No Symptoms, No Fever, No Chills Eyes: No Symptoms Ears, Nose, & Throat: No Symptoms Respiratory: No Symptoms, No Cough, No Dyspnea Cardiac: No Symptoms, No Chest Pain, No Edema, No Syncope Abdominal/Gastrointestinal: No Symptoms, No Abdominal Pain, No Nausea, No Vomiting, No Diarrhea Genitourinary Symptoms: No Symptoms, No Dysuria Musculoskeletal: No Symptoms, No Back Pain, No Neck Pain Skin: No Symptoms, No Rash Neurological: No Symptoms, No Dizziness, No Focal Weakness, No Sensory Changes Psychological: No Symptoms Endocrine: No Symptoms Hematologic/Lymphatic: No Symptoms Immunological/Allergic: No Symptoms All Other Systems: Reviewed and Negative - Past Medical History Pertinent Past Medical History: Yes Neurological History: No Pertinent History Cardiac History: No Pertinent History Respiratory History: No Pertinent History Endocrine Medical History: No Pertinent History Musculoskeletal History: Osteoarthritis GI Medical History: Crohns Disease Male Reproductive Disorders: Other Other Medical History: Crohns Disease - Past Surgical History Past Surgical History: Yes Gastrointestinal: Hernia Repair Musculoskeletal: Joint Replacement, Other Other Surgical History: right hip replacement bilat carpal tunnel - Social History Smoking Status: Former smoker Exposure to second hand smoke: No Drug Use: none Patient Lives Alone: No - Nursing Vital Signs Nursing Vital Signs: Initial Vital Signs Temperature 98.8 F 01/10/23 23:35 Pulse Rate 59 L 01/10/23 23:35 Respiratory Rate 18 01/10/23 23:35 Blood Pressure 125/53 01/10/23 23:35 O2 Sat by Pulse Oximetry 97 01/10/23 23:35 Pain Scale Pain Intensity 8 - Physical Exam General Appearance: no apparent distress, alert Eye Exam: PERRL/EOMI, eyes nml inspection Ears, Nose, Throat Exam: normal ENT inspection, TMs normal, pharynx normal, moist mucous membranes Neck Exam: normal inspection, non-tender, supple, full range of motion Respiratory Exam: normal breath sounds, lungs clear, No respiratory distress Cardiovascular Exam: regular rate/rhythm, normal heart sounds, normal peripheral pulses Gastrointestinal/Abdomen Exam: soft, normal bowel sounds, other (Distended urinary bladder), No tenderness, No mass Back Exam: normal inspection, normal range of motion, No CVA tenderness, No coty tebral tenderness Extremity Exam: normal inspection, normal range of motion, pelvis stable Neurologic Exam: alert, oriented x 3, cooperative, normal mood/affect, nml cerebellar function, nml station & gait, sensation nml, No motor deficits Skin Exam: normal color, warm, dry, No rash Lymphatic Exam: No adenopathy SpO2 Interpretation: normal SpO2: 98 O2 Delivery: Room Air - Course Nursing assessment & vital signs reviewed: Yes - Progress Progress: improved Progress Note: Patient 77-year-old male presents to our ED for evaluation and treatment of urinary retention. Patient was instructed by his urologist come to our ED to place a Santamaria catheter. Santamaria catheter was placed. Approximately 800 cc of urine expressed. Patient had a urinalysis earlier today which was negative for UTI. No need to repeat urinalysis at this time. We will maintain the Santamaria catheter. Will discharge patient home. Patient currently is asymptomatic. Bladder is no longer palpable. at bedside. They voiced no other complaints concerns at this time. Portions of this note were created with voice recognition technology. There may be grammatical, spelling, punctuation or sound alike errors Complexity of problems addressed is low acute uncomplicated Complexity of data reviewed and analyzed is none. No specialized testing ordered. Santamaria catheter placed. Patient had a urinalysis earlier today which was negative. Recent complication/risk morbidity/mortality of patient management is moderate. Indwelling Santamaria catheter placed. No complications. It will be maintained until removed by patient's urologist. at bedside. She will call in the morning to schedule follow-up appointment with patient's urologist who is aware that patient is in our ED today. Patient discharged home. Vital stable. Patient asymptomatic. Plan of care established for shared decision making. No social determinants of health presents impede follow-up. Patient voiced no other complaints or concerns. Portions of this note were created with voice recognition technology. There may be grammatical, spelling, punctuation or sound alike errors Counseled pt/family regarding: diagnosis, need for follow-up - Departure Departure Disposition: Home Clinical Impression: Urinary retention Condition: Stable Critical Care Time: No Referrals: SULTANA TAN MD [Primary Care Provider] - Follow up/PCP as directed Additional Instructions: Discharge/Care Plan DORA CARO was seen on 01/11/23 in the Emergency Room. The patient was counseled regarding Diagnosis,Lab results, Imaging studies, need for follow up and when to return to the Emergency Room. Prescriptions given: Discharge Note I have spoken with the patient and/or caregivers. I have explained the patient's condition, diagnosis and treatment plan based on the information available to me at this time. I have answered the patient's and/or caregiver's questions and addressed any concerns. The patient and/or caregivers have as good understanding of the patient's diagnosis, condition and treatment plan as can be expected at this point. The vital signs have been stable. The patient's condition is stable and appropriate for discharge from the emergency department. The patient will pursue further outpatient evaluation with the primary care physician or other designated or consulting physician as outlined in the discharge instructions. The patient and/or caregivers are agreeable to this plan of care and follow-up instructions have been explained in detail. The patient and/or caregivers have received these instruction. The patient/and or caregivers are aware that any significant change in condition or worsening of symptoms should prompt an immediate return to this or the closest emergency department or call 911.
[2023-01-11 00:26] VITALS: BP 117/52; PULSE 58; RESP 16; O2SAT 96
== END 2023-01-11 00:27 | disposition home or self-care (01) ==
LOC: ED 23:10
DX: R33.9 Retention of urine, unspecified (principal); Z79.899 Other long term (current) drug therapy
CPT/HCPCS: 51702; 99283

== ENCOUNTER 2023-06-09 17:22 | Emergency (ER) | payer MEDICARE, OTHER ==
[2023-06-09 17:29] VITALS: TEMP 97
--- NOTE | 2023-06-09 17:41 | ERPHSYRPT ---
- History of Present Illness Time Seen by Provider: 06/09/23 17:35 Historian: patient, EMS, old records Exam Limitations: no limitations Patient Subjective Stated Complaint: pt here for multi cos, sob, dizzy, not eating well and loose stools. he has hx of crohons, and is off medications per dr and he thinks he may be having a flare up. lost wt recently Triage Nursing Assessment: pt alert, arrived per ambulance, skin w/d/p, abd soft and round, no edema noted, moves all ext well, Physician History: This is a 77-year-old white male patient who was brought into the emergency department by the storage management consultant service with multiple complaints. The paramedics provided additional, independent history of the events that occurred today. I reviewed the patient's past medical history. The multiple complaints that this patient arrives with is dizziness, diarrhea, decreased appetite, loose stools, shortness of breath and weight loss. Patient denies pain anywhere. Patient was taken off of his Crohn's medication. He is concerned that some of his symptoms are related to a Crohn's flareup. Patient denies chest pain. Patient has a history of Crohn's disease, gastroesophageal reflux disease, hypertension, prostate issues, hyperlipidemia and arrhythmia issues Timing/Duration: day(s) (Last few days. ) Activities at Onset: none Severity of Pain-Max: none Severity of Pain-Current: none Associated Symptoms: diarrhea, nausea, shortness of breath, weakness Previous symptoms: same symptoms as today, no recent treatment Allergies/Adverse Reactions: No Known Drug Allergies Allergy (Verified 06/09/23 17:25) Home Medications: Atenolol 50 mg [Tenormin 50 mg] 25 mg PO DAILY 06/10/16 [History] Fenofibrate,Micronized 145 mg* [Tricor 145 MG] 145 mg PO DAILY 06/10/16 [History] Omeprazole 40 mg PO BID 06/10/16 [History] Tamsulosin HCl 0.4 mg [Flomax 0.4 MG] 0.4 mg PO DAILY 06/10/16 [History] Tramadol HCl [Tramadol HCl ER] 100 mg PO DAILY 06/10/16 [History] Aspirin 81 gm Chew [Baby Aspirin 81 mg Chew] 81 mg PO DAILY 06/09/23 [History] Magnesium Oxide 400 mg [Mag-Ox 400] 400 mg PO DAILY 06/09/23 [History] Hx Tetanus, Diphtheria Vaccination/Date Given: Yes Hx Influenza Vaccination/Date Given: Yes Hx Pneumococcal Vaccination/Date Given: Yes Immunizations Up to Date: Yes Travel Risk - International Travel Have you traveled outside of the country in past 3 weeks: No - Coronavirus Screening Are you exhibiting any of the following symptoms?: Yes Symptoms: Vomiting/Diarrhea Close contact with a COVID-19 positive Pt in past 14-21 Days: No - Vaccine Status Have you recieved a Covid-19 vaccination: Yes 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: [employer] - Vaccination Dates Date of 2cond Vaccination (if applicable): August 2020 - Review of Systems Constitutional: Weakness Eyes: No Symptoms Ears, Nose, & Throat: No Symptoms, Throat Swelling Cardiac: No Symptoms Abdominal/Gastrointestinal: Nausea, Diarrhea, Appetite Changes Genitourinary Symptoms: No Symptoms Musculoskeletal: No Symptoms Skin: No Symptoms Neurological: Dizziness Psychological: No Symptoms Endocrine: No Symptoms Hematologic/Lymphatic: No Symptoms Immunological/Allergic: No Symptoms All Other Systems: Reviewed and Negative - Past Medical History Pertinent Past Medical History: Yes Neurological History: No Pertinent History Cardiac History: Arrhythmia Respiratory History: No Pertinent History Endocrine Medical History: No Pertinent History Musculoskeletal History: Osteoarthritis GI Medical History: Crohns Disease Male Reproductive Disorders: Other Other Medical History: Crohns Disease - Past Surgical History Past Surgical History: Yes Gastrointestinal: Hernia Repair Genitourinary: Other Musculoskeletal: Joint Replacement, Other Other Surgical History: right hip replacement bilat carpal tunnel - Social History Smoking Status: Former smoker Exposure to second hand smoke: No Drug Use: none Patient Lives Alone: No - Nursing Vital Signs Nursing Vital Signs: Initial Vital Signs Temperature 97.0 F 06/09/23 17:27 Pulse Rate 61 06/09/23 17:27 Respiratory Rate 18 06/09/23 17:27 Blood Pressure 115/63 06/09/23 17:27 O2 Sat by Pulse Oximetry 100 06/09/23 17:27 Pain Scale Pain Intensity 0 - Physical Exam General Appearance: no apparent distress, alert, anxiety Eye Exam: PERRL/EOMI, eyes nml inspection Ears, Nose, Throat Exam: normal ENT inspection, moist mucous membranes Neck Exam: normal inspection, non-tender, supple, full range of motion Respiratory Exam: normal breath sounds, lungs clear, No chest tenderness, No respiratory distress Cardiovascular Exam: regular rate/rhythm, normal heart sounds, normal peripheral pulses Gastrointestinal/Abdomen Exam: soft, normal bowel sounds, No tenderness Rectal Exam: not done Back Exam: normal inspection, normal range of motion, No CVA tenderness, No vertebral tenderness Extremity Exam: normal inspection, normal range of motion, pelvis stable Neurologic Exam: alert, oriented x 3, cooperative, mold engraver II-XII nml as tested, normal mood/affect, sensation nml Skin Exam: normal color, warm, dry Lymphatic Exam: No adenopathy SpO2 Interpretation: normal SpO2: 100 O2 Delivery: Room Air - Course Nursing assessment & vital signs reviewed: Yes Ordered Tests: Active Orders 24 hr Category Date Time Status IV Insertion STAT Care 06/09/23 17:41 Active ABDOMEN AND PELVIS W/0 CONTRAS [CT] Stat Exams 06/09/23 17:41 Completed CHEST 1 VIEW (PORTABLE) Stat Exams 06/09/23 17:41 Completed AMYLASE Stat Lab 06/09/23 17:40 Completed BLOOD CULTURE Stat Lab 06/09/23 17:55 Received CBC W DIFF Stat Lab 06/09/23 17:40 Completed CMP Stat Lab 06/09/23 17:40 Completed LIPASE Stat Lab 06/09/23 17:40 Completed Lactic Acid Stat Lab 06/09/23 17:45 Completed TROPONIN Q4H Lab 06/09/23 17:45 Completed TROPONIN Q4H Lab 06/09/23 21:40 Completed TROPONIN Q4H Lab 06/10/23 01:45 Ordered UA W/RFX UR CULTURE Stat Lab 06/09/23 17:41 Ordered Medication Summary Generic Name Dose Route Start Last Admin Trade Name Freq PRN Reason Stop Dose Admin Sodium Chloride 1,000 mls @ 100 mls/hr 06/09/23 17:45 06/09/23 20:17 Sodium Chloride 0.9% 1000 Ml IV 07/09/23 17:44 999 mls/hr .Q10H VIKTOR Infusion Sodium Chloride 1,000 mls @ 100 mls/hr 06/09/23 21:30 06/09/23 21:33 Sodium Chloride 0.9% 1000 Ml IV 07/09/23 21:29 100 mls/hr .Q10H VIKTOR Administration Discontinued Medications Generic Name Dose Route Start Last Admin Trade Name Freq PRN Reason Stop Dose Admin Sodium Chloride 1,000 mls @ 999 mls/hr 06/09/23 19:47 06/09/23 20:17 Sodium Chloride 0.9% 1000 Ml IV 06/09/23 20:47 Not Given .Q1H1M STA Lab/Rad Data: Laboratory Result Diagrams 06/09/23 17:40 06/09/23 17:40 Laboratory Results 06/09/23 06/09/23 06/09/23 Range/Units 21:40 17:45 17:45 WBC (4.0-10.5) x10^3/uL RBC (4.1-5.6) x10^6/uL Hgb (12.5-18.0) g/dL Hct (42-50) % MCV (78-100) fL MCH (26-32) pg MCHC (32-36) g/dL RDW (11.5-14.0) % Plt Count (150-450) x10^3/uL MPV (7.5-11.0) fL Gran % (36.0-66.0) % Immature Gran % (Auto) (0.00-0.4) % Nucleat RBC Rel Count (0.00-0.1) % Eos # (Auto) (0-0.5) x10^3/uL Immature Gran # (Auto) (0.00-0.03) x10^3u/L Absolute Lymphs (auto) (1.0-4.6) x10^3/uL Absolute Monos (auto) (0.0-1.3) x10^3/uL Absolute Nucleated RBC (0.00-0.01) x10^3u/L Lymphocytes % (24.0-44.0) % Monocytes % (0.0-12.0) % Eosinophils % (0.00-5.0) % Basophils % (0.0-0.4) % Absolute Granulocytes (1.4-6.9) x10^3/uL Basophils # (0-0.4) x10^3/uL Sodium (137-145) mmol/L Potassium (3.5-5.1) mmol/L Chloride (98-107) mmol/L Carbon Dioxide (22-30) mmol/L Anion Gap (5-15) MEQ/L BUN (9-20) mg/dL Creatinine (0.66-1.25) mg/dL Estimated GFR ML/MIN Glucose (74-106) mg/dL Lactic Acid 1.5 (0.4-2.0) Calcium (8.4-10.2) mg/dL Total Bilirubin (0.2-1.3) mg/dL AST (17-59) U/L ALT (0-50) U/L Alkaline Phosphatase (38-126) U/L Troponin I < 0.012 < 0.012 (0.000-0.034) ng/mL Serum Total Protein (6.3-8.2) g/dL Albumin (3.5-5.0) g/dL Amylase (30-110) U/L Lipase (23-300) U/L Influenza Type A Ag (NEGATIVE) Influenza Type B Ag (NEGATIVE) RSV (PCR) (NEGATIVE) SARS-CoV-2 (PCR) (NEGATIVE) 06/09/23 06/09/23 06/09/23 Range/Units 17:40 17:40 17:40 WBC 8.2 (4.0-10.5) x10^3/uL RBC 2.87 L (4.1-5.6) x10^6/uL Hgb 8.0 L (12.5-18.0) g/dL Hct 26.1 L (42-50) % MCV 90.9 (78-100) fL MCH 27.9 (26-32) pg MCHC 30.7 L (32-36) g/dL RDW 15.0 H (11.5-14.0) % Plt Count 234 (150-450) x10^3/uL MPV 10.5 (7.5-11.0) fL Gran % 77.5 H (36.0-66.0) % Immature Gran % (Auto) 0.2 (0.00-0.4) % Nucleat RBC Rel Count 0.0 (0.00-0.1) % Eos # (Auto) 0.12 (0-0.5) x10^3/uL Immature Gran # (Auto) 0.02 (0.00-0.03) x10^3u/L Absolute Lymphs (auto) 1.06 (1.0-4.6) x10^3/uL Absolute Monos (auto) 0.60 (0.0-1.3) x10^3/uL Absolute Nucleated RBC 0.00 (0.00-0.01) x10^3u/L Lymphocytes % 12.9 L (24.0-44.0) % Monocytes % 7.3 (0.0-12.0) % Eosinophils % 1.5 (0.00-5.0) % Basophils % 0.6 (0.0-0.4) % Absolute Granulocytes 6.39 (1.4-6.9) x10^3/uL Basophils # 0.05 (0-0.4) x10^3/uL Sodium 136 L (137-145) mmol/L Potassium 4.5 (3.5-5.1) mmol/L Chloride 110 H (98-107) mmol/L Carbon Dioxide 20 L (22-30) mmol/L Anion Gap 9.7 (5-15) MEQ/L BUN 47 H (9-20) mg/dL Creatinine 1.52 H (0.66-1.25) mg/dL Estimated GFR 46.6 ML/MIN Glucose 141 H (74-106) mg/dL Lactic Acid (0.4-2.0) Calcium 7.9 L (8.4-10.2) mg/dL Total Bilirubin 0.20 (0.2-1.3) mg/dL AST 23 (17-59) U/L ALT 13 (0-50) U/L Alkaline Phosphatase 50 (38-126) U/L Troponin I (0.000-0.034) ng/mL Serum Total Protein 5.6 L (6.3-8.2) g/dL Albumin 2.9 L (3.5-5.0) g/dL Amylase 50 (30-110) U/L Lipase 66 (23-300) U/L Influenza Type A Ag NEGATIVE (NEGATIVE) Influenza Type B Ag NEGATIVE (NEGATIVE) RSV (PCR) NEGATIVE (NEGATIVE) SARS-CoV-2 (PCR) NEGATIVE (NEGATIVE) - Progress Progress Note: 06/09/23 17:40 This patient's medical issue is 1 of moderate to high complexity. The level complex in the workup performed is based on review of the patient's past medical history, review of the patient's medication list, review of the patient's drug allergy list, history present illness and physical findings on examination. The workup in this patient includes placement of intravenous line, infusion of normal saline solution, CBC, CMP, urinalysis, amylase, lipase, viral swabs, mon otest, CT scan of the abdomen pelvis without contrast. 06/09/23 20:22 I interpreted the patient's laboratory study results. The patient is anemic with a hemoglobin of 8.0. On 01/10/2023 patient had a hemoglobin of 13.5. Patient also is dehydrated he has a GFR 46.6. On 03/28/2023 he had a GFR of gr eater than 60. We are still awaiting the viral study results. We are also awaiting the urinalysis. CT scan of the abdomen pelvis without contrast was not interpreted by the radiologist and I reviewed the impression. There is mildly dilated small bowel loops. No definite transition point. There is fecal loading of the colon also noted as colonic diverticulosis without acute diverticulitis. There is no evidence of bowel obstruction. There is no evidence of bowel wall thickening. There is bilateral nonobstructing renal calculi. There is bilateral renal areas that suggest the possibility of renal cysts. 06/09/23 22:10 Spoke with hospitalist out of [facility] in [facility]. They do have gastroenterology coverage. Therefore, the hospitalist accepts the patient in transfer. I reviewed the patient history, presenting complaint, results of our workup and response to our treatment. Counseled pt/family regarding: lab results, diagnosis, rad results Medical Desision Making - Independent Historian Additional History obtained from: Spouse - Diagnostic Testing Diagnostic test were ordered, analyzed, and reviewed by me: Yes Radiological Interpretation: Reviewed by me, Teleradiologist Report - Risk of complications The pt has a high risk of morbidity or mortality based on: Decision regarding hospitilization or escalation of hosp level of care - Departure Departure Disposition: Transfer Clinical Impression: GI bleed, Anemia, Acute renal insufficiency Condition: Stable Critical Care Time: No Referrals: SULTANA TAN MD [Primary Care Provider] - Follow up/PCP as directed
[2023-06-09] MEDS ORDERED: Sodium Chloride 0.9% 1000 ML 1,000 ML IV SCH ×2 (17:45→21:30)
[2023-06-09] MEDS ORDERED: Sodium Chloride 0.9% 1000 ML 1,000 ML ONE ×2 (17:46→21:31)
[2023-06-09 17:50] LABS: Absolute Neutrophil Ct (ANC) 6.39 x10^3/uL (1.4-6.9); BASOPHIL % 0.6 % (0.0-0.4); Basophil (Absolute #) 0.05 x10^3/uL (0-0.4); Eosinophil % 1.5 % (0.00-5.0); Eosinophil (Absolute #) 0.12 x10^3/uL (0-0.5); Hematocrit 26.1 % (42-50); IMMATURE GRAN # 0.02 x10^3u/L (0.00-0.03); IMMATURE GRAN % 0.2 % (0.00-0.4); Lymphocyte (Absolute #) 1.06 x10^3/uL (1.0-4.6); Lymphocytes % 12.9 % (24.0-44.0); Mean Cell Volume 90.9 fL (78-100); Mean Corpuscular Hemoglobin 27.9 pg (26-32); Mean Corpuscular Hgb Concent. 30.7 g/dL (32-36); Mean Platelet Volume 10.5 fL (7.5-11.0); Monocytes % 7.3 % (0.0-12.0); Neutrophil % 77.5 % (36.0-66.0); Platelet Count 234 x10^3/uL (150-450); Red Blood Count 2.87 x10^6/uL (4.1-5.6); White Blood Count 8.2 x10^3/uL (4.0-10.5)
[2023-06-09 18:04] LABS: ALBUMIN 2.9 g/dL (3.5-5.0); ANION GAP 9.7 MEQ/L (5-15); BILIRUBIN,TOTAL 0.2 mg/dL (0.2-1.3); Calcium 7.9 mg/dL (8.4-10.2); Creatinine 1 1.52 mg/dL (0.66-1.25); EST GLOMERULAR FILTRATION RATE 46.6 ML/MIN; Potassium 4.5 mmol/L (3.5-5.1); Total Protein 5.6 g/dL (6.3-8.2)
--- NOTE | 2023-06-09 19:45 | XRAY ---
CLINICAL HISTORY:Diarrhea COMPARISON:None. TECHNIQUE:A CT scan of the abdomen and pelvis was performed without IV contrast. No oral contrast. Coronal and sagittal reconstructive images were also obtained. FINDINGS: Limited organ parenchymal evaluation within the limitations of non-contrast study. Scan through the lower chest reveals fibro-pleural changes vs. partial atelectasis in the left anterior lung base. Abdomen: The liver is of average size and measures 13 cm. No focal or diffuse parenchymal abnormality. The portal vein, intrahepatic biliary radicals, and the bile ducts are normal. The gallbladder is distended and shows no definite stones. There is no evidence of wall thickening/ pericholecystic collection. The spleen, pancreas, and adrenal glands are unremarkable. The kidneys are normal in size and shape. There are bilateral hypodense areas, most likely representing simple cysts, dominants measuring 10 cm on the right side and 2 cm on the left side. There are a few small bilateral renal calculi, dominants measuring 2 mm in the right midpole, and 4 mm in the left midpole. No hydronephrosis. The stomach appears unremarkable. Mild prominent small bowel loops with maximum diameter measuring about 42 mm showing air fluid levels. Normal appearing Appendix. There is no evidence of significant mesenteric or retroperitoneal lymph node enlargement. No free fluid. Pelvis: Right hip replacement is seen, with artifacts degrading the image quality of the pelvis. The urinary bladder is unremarkable. Increased stool density mainly in the rectum. Colonic diverticulosis mainly involves the sigmoid colon without CT evidence of acute diverticulitis, predominantly in the sigmoid colon. No evidence of bowel obstruction, nor significant bowel wall thickening. Reproductive organs are not visualized. Atherosclerotic calcification of the aorta and major abdominal arteries seen. No evidence of pelvic lymphadenopathy. Degenerative changes in the visualized spine, with marginal osteophytes. Multilevel vacuum disc phenomena are present. IMPRESSION: 1. Mild dilated small bowel loops with a maximum diameter measuring about 42 mm showing air fluid levels. No definite transition point seen. Clinical correlation and follow-up are suggested. 2. Fecal loading of the colon also noted, as colonic diverticulosis, predominantly involving sigmoid. Correlate clinically. 3. Bilateral nonobstructive renal calculi, dominants measuring 2 mm in the right midpole, and 4 mm in the left midpole. 4. Bilateral hypoattenuating renal areas, measuring 10 cm on the right side and 2 cm on the left side, most likely cortical cysts. 5. Left lung base with fibro-pleural changes vs. partial atelectasis. 6. The rest of the findings as detailed above. Electronically Signed by: Keyur Blackwood MD. (06/09/2023 19:40:56 EST)
[2023-06-09] MEDS ORDERED: Sodium Chloride 0.9% 1000 ML 1,000 ML IV STA (19:47)
[2023-06-09 21:05] LABS: INFLUENZA A NEGATIVE (NEGATIVE); INFLUENZA B NEGATIVE (NEGATIVE); RESPIRATORY SYNCTIAL VIRUS NEGATIVE (NEGATIVE); SARS-CoV-2 Xpert Express NEGATIVE (NEGATIVE)
--- NOTE | 2023-06-09 21:47 | XRAY ---
Indication: Short of breath. Comparison: March 31, 2021 Portable chest again hyperinflated and clear. Heart not enlarged. Bony thorax intact again with osteopenia and mild degenerative changes. Impression: Continued nonacute hyperinflated chest.
[2023-06-09 22:13] VITALS: O2SAT 100
[2023-06-09 22:39] VITALS: BP 93/63; PULSE 66; RESP 20
[2023-06-09 23:29] LABS: ADD URINE CULTURE? NO (NO); Appearance Clear (Clear); Bacteria None Seen /HPF (None Seen); Bilirubin Negative (Negative); Blood Negative (Negative); Epithelial Cells None Seen /HPF (None Seen); Glucose, Urine Negative (Negative); Hyaline Casts NONE SEEN /LPF (0-2); Ketones Negative (Negative); Leukocyte Esterase Small (Negative); Nitrite Negative (Negative); Protein,Urine Dip Negative (Negative); RBC 0-2 /HPF (0-5); Urobilinogen 0.2 mg/dL (0.2)
== END 2023-06-09 23:06 | disposition short-term general hospital (02) ==
LOC: ED 17:22
DX: K92.2 Gastrointestinal hemorrhage, unspecified (principal); D64.9 Anemia, unspecified; N17.9 Acute kidney failure, unspecified; R42 Dizziness and giddiness; R19.7 Diarrhea, unspecified; R63.0 Anorexia; R06.02 Shortness of breath; K50.90 Crohn's disease, unspecified, without complications; I10 Essential (primary) hypertension; E78.5 Hyperlipidemia, unspecified; Z79.891 Long term (current) use of opiate analgesic; Z79.899 Other long term (current) drug therapy; Z20.828 Contact with and (suspected) exposure to other viral communicable diseases
CPT/HCPCS: 0241U; 36000; 36415; 71045; 74176; 80053; 81001; 82150; 83605; 83690; 84484; 85025; 87040; 93005; 93041; 94760; 96360; 96361; 99285

== ENCOUNTER 2025-03-10 09:11 | Emergency (ER) | payer MEDICARE, OTHER ==
--- NOTE | 2025-03-10 09:23 | ERPHSYRPT ---
- History of Present Illness Time Seen by Provider: 03/10/25 09:23 Historian: patient, family Exam Limitations: no limitations Physician History: This is an 79-year-old white male patient arrives by private vehicle company by his spouse and is a patient of Dr. Tan with the complaint of substernal, central chest pain that is described as a mild ache or pressure that is nonradiating. It was associated with nausea and lasted 15 minutes. Patient arrives and both his chest discomfort and nausea have completely resolved. He stated that in the last 2 to 3 months he has had 4 of these episodes. He has a history of arrhythmia but has never been diagnosed with coronary artery disease. Patient did not take any aspirin and refuses aspirin because he had a GI bleed on aspirin in the past. Patient has a history of prostate issues, Crohn's disease, esophageal reflux disease, hyperlipidemia and osteoporosis. Patient does see a urologist, Dr. Do, pain specialist Dr. Ocampo. Timing/Duration: today Quality: aching, pressure Location: substernal, central Chest Pain Radiation: no radiation Severity of Pain-Max: mild Severity of Pain-Current: none Modifying Factors: Improves With: nothing Associated Symptoms: denies symptoms Prior Chest Pain/Cardiac Workup: no prior cardiac workup Nitro Today/Relief: no nitro taken today Aspirin Treatment Today: no aspirin today Allergies/Adverse Reactions: No Known Drug Allergies Allergy (Verified 03/10/25 09:19) Home Medications: Atenolol 50 mg [Tenormin 50 mg] 25 mg PO DAILY 06/10/16 [History] Fenofibrate,Micronized 145 mg* [Tricor 145 MG] 145 mg PO DAILY 06/10/16 [History] Tamsulosin HCl 0.4 mg [Flomax 0.4 MG] 0.4 mg PO DAILY 06/10/16 [History] Tramadol HCl [Tramadol HCl ER] 100 mg PO DAILY 06/10/16 [History] Magnesium Oxide 400 mg [Mag-Ox 400] 400 mg PO DAILY 06/09/23 [History] Mesalamine 1.2 gm PO BID 12/14/24 [History] [place]-3 Fatty Acids [[place]-3] 1,000 mg PO DAILY 12/14/24 [History] Hx Tetanus, Diphtheria Vaccination/Date Given: Yes Hx Influenza Vaccination/Date Given: Yes Hx Pneumococcal Vaccination/Date Given: Yes Travel Risk - International Travel Have you traveled outside of the country in past 3 weeks: No - Emerging Infectious Disease Are you exhibiting symptoms associated with any current EIDs: No - Review of Systems Constitutional: No Symptoms Eyes: No Symptoms Ears, Nose, & Throat: No Symptoms Respiratory: No Symptoms Cardiac: Chest Pain Abdominal/Gastrointestinal: No Symptoms Genitourinary Symptoms: No Symptoms Musculoskeletal: No Symptoms Skin: No Symptoms Neurological: No Symptoms Psychological: No Symptoms Endocrine: No Symptoms Hematologic/Lymphatic: No Symptoms Immunological/Allergic: No Symptoms All Other Systems: Reviewed and Negative - Past Medical History Pertinent Past Medical History: Yes Neurological History: No Pertinent History ENT History: No Pertinent History Cardiac History: Arrhythmia Respiratory History: No Pertinent History Endocrine Medical History: No Pertinent History Musculoskeletal History: Osteoarthritis GI Medical History: Diverticulosis History: No Pertinent History Psycho-Social History: No Pertinent History Male Reproductive Disorders: Other Other Medical History: Crohns Disease - Past Surgical History Past Surgical History: Yes Neuro Surgical History: No Pertinent History Cardiac: No Pertinent History Respiratory: No Pertinent History Gastrointestinal: Hernia Repair Genitourinary: Other Musculoskeletal: Joint Replacement, Orthopedic Surgery, Other Male Surgical History: No Pertinent History Other Surgical History: right hip replacement, and left knee replacement, bilat carpal tunnel - Social History Smoking Status: Never smoker Exposure to second hand smoke: No Drug Use: none - Social Determinants of Health Will the patient participate in the screening: Yes Do you worry about a steady place to live?: No In the past 12 months,have you had to go without utilities?: No Transportation Issues: No Has anyone in your support network made you feel unsafe?: No Have you or anyone in your house had to go w/o enough food: No - Nursing Vital Signs Nursing Vital Signs: Initial Vital Signs Pulse Rate 55 L 03/10/25 09:25 Respiratory Rate 17 03/10/25 09:25 Blood Pressure 158/68 03/10/25 09:25 O2 Sat by Pulse Oximetry 97 03/10/25 09:25 Pain Scale Pain Intensity 0 - Physical Exam General Appearance: no apparent distress, alert, anxiety, thin Eye Exam: PERRL/EOMI, eyes nml inspection Ears, Nose, Throat Exam: normal ENT inspection, moist mucous membranes Neck Exam: normal inspection, non-tender, supple, full range of motion Respiratory Exam: normal breath sounds, lungs clear, airway intact, No chest tenderness, No respiratory distress Cardiovascular Exam: regular rate/rhythm, normal heart sounds, normal peripheral pulses Gastrointestinal/Abdomen Exam: soft, normal bowel sounds, No tenderness Rectal Exam: not done Back Exam: normal inspection, normal range of motion, No CVA tenderness, No vertebral tenderness Extremity Exam: normal inspection, normal range of motion, pelvis stable Neurologic Exam: alert, oriented x 3, cooperative, damage prevention coordinator II-XII nml as tested, nml cerebellar function, nml station & gait, sensation nml Skin Exam: normal color, warm, dry Lymphatic Exam: No adenopathy SpO2 Interpretation: normal O2 Delivery: Room Air - Course Nursing assessment & vital signs reviewed: Yes EKG Interpreted by Me: RATE (51), Sinus Rhythm, Left [place] Deviation, NORMAL INTERVALS, NORMAL QRS, Other (The QTc is 392. No acute ischemia. Today's EKG has improved when compared to EKG dated 12/17/2024. There is resolution of prolonged FL interval.) Ordered Tests: Active Orders 24 hr Category Date Time Status Integrated Marketing Intern STAT Care 03/10/25 09:34 Active EKG-ER Only STAT Care 03/10/25 09:33 Active IV Insertion STAT Care 03/10/25 09:33 Active Pulse Oximetry (ED) STAT Care 03/10/25 09:33 Active CHEST 1 VIEW (PORTABLE) Stat Exams 03/10/25 09:34 Completed CBC W DIFF Stat Lab 03/10/25 09:52 Completed CMP Stat Lab 03/10/25 09:52 Completed D-DIMER QUANTITATIVE Stat Lab 03/10/25 09:52 Completed MAGNESIUM Stat Lab 03/10/25 09:52 Completed NT PRO BNPII Stat Lab 03/10/25 09:52 Completed PROTIME WITH INR Stat Lab 03/10/25 09:52 Completed TROPONIN Q4H Lab 03/10/25 09:52 Completed TROPONIN Q4H Lab 03/10/25 11:49 Completed TROPONIN Q4H Lab 03/10/25 17:45 Ordered Medication Summary Discontinued Medications Generic Name Dose Route Start Last Admin Trade Name Freq PRN Reason Stop Dose Admin Magnesium Oxide 400 mg 03/10/25 10:41 03/10/25 11:21 Magnesium Oxide 400 Mg Tablet PO 03/10/25 10:42 400 mg STAT ONE Administration Magnesium Oxide Confirm 03/10/25 11:15 Magnesium Oxide 400 Mg Tablet Administered 03/10/25 11:16 Dose 400 mg .ROUTE .STK-MED ONE Lab/Rad Data: Laboratory Result Diagrams 03/10/25 09:52 03/10/25 09:52 Laboratory Results 03/10/25 03/10/25 03/10/25 Range/Units 11:49 09:52 09:52 WBC (4.23-9.07) x10^3/uL RBC (4.63-6.08) x10^6/uL Hgb (13.7-17.5) g/dL Hct (40.1-51.0) % MCV (79.0-92.2) fL MCH (25.7-32.2) pg MCHC (32.3-36.5) g/dL RDW (11.6-14.4) % Plt Count (163-337) x10^3/uL MPV (9.4-12.4) fL Gran % (34.0-67.9) % Immature Gran % (Auto) (0.001-0.429) % Nucleat RBC Rel Count (0.00-0.2) % Eos # (Auto) (0.04-0.54) x10^3/uL Immature Gran # (Auto) (0.001-0.031) x10^3u/L Absolute Lymphs (auto) (1.32-3.57) x10^3/uL Absolute Monos (auto) (0.30-0.82) x10^3/uL Absolute Nucleated RBC (0.00-0.012) x10^3u/L Lymphocytes % (21.8-53.1) % Monocytes % (5.3-12.2) % Eosinophils % (0.8-7.0) % Basophils % (0.2-1.2) % Absolute Granulocytes (1.78-5.38) x10^3/uL Basophils # (0.01-0.08) x10^3/uL PT 11.4 (9.4-12.5) SECONDS INR 1.02 (0.8-3.0) D-Dimer 0.47 (0.0-0.50) mg/L Sodium (135-145) mmol/L Potassium (3.5-5.1) mmol/L Chloride (98-107) mmol/L Carbon Dioxide (22-30) mmol/L Anion Gap (5-15) MEQ/L BUN (9-20) mg/dL Creatinine (0.66-1.25) mg/dL Estimated GFR ML/MIN Glucose (74-106) mg/dL Calcium (8.4-10.2) mg/dL Magnesium (1.6-2.3) mg/dL Total Bilirubin (0.2-1.3) mg/dL AST (17-59) U/L ALT (0-50) U/L Alkaline Phosphatase (38-126) U/L Troponin I < 0.012 < 0.012 (0.000-0.033) ng/mL NT-Pro-B Natriuret Pep (<300) pg/mL Serum Total Protein (6.3-8.2) g/dL Albumin (3.5-5.0) g/dL 03/10/25 03/10/25 Range/Units 09:52 09:52 WBC 6.9 (4.23-9.07) x10^3/uL RBC 4.72 (4.63-6.08) x10^6/uL Hgb 13.6 L (13.7-17.5) g/dL Hct 43.8 (40.1-51.0) % MCV 92.8 H (79.0-92.2) fL MCH 28.8 (25.7-32.2) pg MCHC 31.1 L (32.3-36.5) g/dL RDW 13.4 (11.6-14.4) % Plt Count 180 (163-337) x10^3/uL MPV 10.0 (9.4-12.4) fL Gran % 66.1 (34.0-67.9) % Immature Gran % (Auto) 0.1 (0.001-0.429) % Nucleat RBC Rel Count 0.0 (0.00-0.2) % Eos # (Auto) 0.25 (0.04-0.54) x10^3/uL Immature Gran # (Auto) 0.01 (0.001-0.031) x10^3u/L Absolute Lymphs (auto) 1.47 (1.32-3.57) x10^3/uL Absolute Monos (auto) 0.56 (0.30-0.82) x10^3/uL Absolute Nucleated RBC 0.00 (0.00-0.012) x10^3u/L Lymphocytes % 21.4 L (21.8-53.1) % Monocytes % 8.1 (5.3-12.2) % Eosinophils % 3.6 (0.8-7.0) % Basophils % 0.7 (0.2-1.2) % Absolute Granulocytes 4.54 (1.78-5.38) x10^3/uL Basophils # 0.05 (0.01-0.08) x10^3/uL PT (9.4-12.5) SECONDS INR (0.8-3.0) D-Dimer (0.0-0.50) mg/L Sodium 138 (135-145) mmol/L Potassium 4.5 (3.5-5.1) mmol/L Chloride 103 (98-107) mmol/L Carbon Dioxide 28 (22-30) mmol/L Anion Gap 11.8 (5-15) MEQ/L BUN 31 H (9-20) mg/dL Creatinine 1.23 (0.66-1.25) mg/dL Estimated GFR 59.4 ML/MIN Glucose 99 (74-106) mg/dL Calcium 9.7 (8.4-10.2) mg/dL Magnesium 1.5 L (1.6-2.3) mg/dL Total Bilirubin 0.70 (0.2-1.3) mg/dL AST 27 (17-59) U/L ALT 16 (0-50) U/L Alkaline Phosphatase 59 (38-126) U/L Troponin I (0.000-0.033) ng/mL NT-Pro-B Natriuret Pep 349 (<300) pg/mL Serum Total Protein 7.0 (6.3-8.2) g/dL Albumin 4.3 (3.5-5.0) g/dL - Progress Progress: improved, re-examined Air Movement: good Progress Note: 03/10/25 09:42 My medical decision making and the assignment of moderate complexity to this pain since medical issue today is based on review the patient's past medical history, review of the patient's medication list, reviewed patient drug allergy list, history present illness and physical findings on examination. The workup in this patient includes placement of an intravenous line, CBC, CMP, magnesium level, chest x-ray, troponin level, D-dimer level, BNP level, twelve-lead EKG. Differential diagnosis includes was not limited to gastroesophageal reflux disease, muscle skeletal pain, myocardial infarction, pulmonary infiltrate, electrolyte abnormalities, arrhythmia, pulmonary embolus, CHF 03/10/25 12:33 I interpreted the patient's laboratory data results. Based on the laboratory data results there are no acute, emergent medical issues. That includes a nonacute or emergent second troponin level. 03/10/25 12:37 Patient heart score is low (less than 4) Blood Culture(s) Obtained: No Antibiotics given: No Counseled pt/family regarding: lab results, diagnosis, need for follow-up Medical Desision Making - Independent Historian Additional History obtained from: Spouse - Diagnostic Testing Diagnostic test were ordered, analyzed, and reviewed by me: Yes Radiological Interpretation: Reviewed by me, Teleradiologist Report - Risk of complications Low Risk: Low risk of morbidity from additional dx testing or treatment - Departure Departure Disposition: Home Clinical Impression: Nonspecific chest pain Condition: Stable Critical Care Time: No Referrals: SULTANA TAN MD [Primary Care Provider, INTERNAL MEDICINE] - Follow up/PCP as directed Additional Instructions: Take all your medications as prescribed. Call your primary care provider and deputy juvenile officer today to make arrangements for follow-up appointment for further evaluation and management.
[2025-03-10 09:34] VITALS: TEMP 98.2
[2025-03-10 09:57] LABS: BASOPHIL % 0.7 % (0.2-1.2); Basophil (Absolute #) 0.05 x10^3/uL (0.01-0.08); Eosinophil (Absolute #) 0.25 x10^3/uL (0.04-0.54); Hematocrit 43.8 % (40.1-51.0); Hemoglobin 13.6 g/dL (13.7-17.5); IMMATURE GRAN # 0.01 x10^3u/L (0.001-0.031); IMMATURE GRAN % 0.1 % (0.001-0.429); Lymphocyte (Absolute #) 1.47 x10^3/uL (1.32-3.57); Mean Corpuscular Hemoglobin 28.8 pg (25.7-32.2); Mean Corpuscular Hgb Concent. 31.1 g/dL (32.3-36.5); Monocyte (Absolute #) 0.56 x10^3/uL (0.30-0.82); NUCLEATED RBC # 0.00 x10^3u/L (0.00-0.012); NUCLEATED RBC % 0.0 % (0.00-0.2); Platelet Count 180 x10^3/uL (163-337); Red Blood Count 4.72 x10^6/uL (4.63-6.08); White Blood Count 6.9 x10^3/uL (4.23-9.07)
--- NOTE | 2025-03-10 10:04 | XRAY ---
Indication: Chest pain. Comparison: December 14, 2024 Portable chest remains hyperinflated and clear. Heart not enlarged. Bony thorax intact again with osteopenia, mild degenerative changes, and minimal scoliosis. No new/acute findings.
[2025-03-10 10:14] LABS: INR 1.02 (0.8-3.0); PROTIME 11.4 SECONDS (9.4-12.5)
[2025-03-10 10:23] LABS: Calcium 9.7 mg/dL (8.4-10.2); Carbon Dioxide 28.0 mmol/L (22-30); Creatinine 1 1.23 mg/dL (0.66-1.25); EST GLOMERULAR FILTRATION RATE 59.4 ML/MIN; Glucose 99.0 mg/dL (74-106); NT PRO BNPII 349.0 pg/mL (<300); Potassium 4.5 mmol/L (3.5-5.1); SGOT/AST 27.0 U/L (17-59); SGPT/ALT 16.0 U/L (0-50); Total Protein 7.0 g/dL (6.3-8.2)
[2025-03-10] MEDS ORDERED: MAG-OX 400 ONE (11:15)
[2025-03-10] MEDS: MAG-OX 400 PO ONE (11:21)
[2025-03-10 12:04] VITALS: PULSE 55; O2SAT 94
[2025-03-10 13:03] VITALS: BP 122/59; RESP 18
== END 2025-03-10 13:03 | disposition home or self-care (01) ==
LOC: ED 09:11
DX: R07.9 Chest pain, unspecified (principal); R11.0 Nausea; Z79.899 Other long term (current) drug therapy